=== PATIENT | female | born 1990 | race Two or more races ===

== ENCOUNTER 2019-06-03 11:46 | Inpatient (IN) | payer BC ==
[2019-06-03 13:34] VITALS: BMI 22.8
--- NOTE | 2019-06-03 14:37 | HP ---
<YonathanlisaAaliyah bolanos - Last Filed: 06/03/19 15:03> COWS - Scale Resting Pulse: 0= [place] 80 or Below Sweatin= Chills/Flushing Restless Observation: 1= Difficult to Sit Still Pupil Size: 0= Normal to Room Light Bone or Joint Aches: 1= Mild Discomfort Runny Nose/ Eye Tearin= Nasal Congestion GI Upset > 30mins: 5=Frequent Vomit/Diarrhea Tremor Observation: 2= Slight Tremor Visible Yawning Observation: 0= None Anxiety or Irritability: 2=Irritable/Anxious Goose Flesh Skin: 0=Smooth Skin COWS Score: 13 CIWA Score - Admission Criteria OASAS Guidelines: Admission for Medically Managed Detox: Requires at least one of the followin. CIWA greater than 12 2. Seizures within the past 24 hours 3. Delirium tremens within the past 24 hours 4. Hallucinations within the past 24 hours 5. Acute intervention needed for co occurring medical disorder 6. Acute intervention needed for co occurring psychiatric disorder 7. Severe withdrawal that cannot be handled at a lower level of care (continued vomiting, continued diarrhea, abnormal vital signs) requiring intravenous medication and/or fluids 8. Admission [facility] Chief Complaint: heroin detox, rehab Allergies/Adverse Reactions: Allergies Allergy/AdvReac Type Severity Reaction Status Date / Time No Known Allergies Allergy Verified 06/03/19 13:23 History of Present Illness: Patient is a 29 yo F with a PMHx of anxiety, insomnia, presenting for heroin detox. Patient has been doing heroin for 2 years. Uses 20 bags a day. Both IV and sniff. Last use yesterday in the morning 1 bag. No hx of overdose. Blacked out this morning. Patient stopped a Methadone program in January. Was on 80mg. She was at [facility] for about a year. denies other drug use, alcohol. Takes alprazolam which is prescribed by her doctor. Was at [facility] today because of abdominal pain and vomiting. says she was detoxing. Does not work. Lives with her dad at a house. Traveled to [facility] in January Smokes half pack a day. Does not want nicotine patch. - Ebola screening Have you traveled outside of the country in the last 21 days: No (N) Have you had contact with anyone from an Ebola affected area: No Do you have a fever: No - Review of Systems Constitutional: Chills, Loss of Appetite, Unintentional Wgt. Loss EENT: reports: Nose Congestion Respiratory: reports: Shortness of Breath Cardiac: denies: Chest Pain, Edema Psychiatric: reports: Agitated, Anxious Patient History - Smoking Cessation Smoking history: Current every day smoker Initiated information on smoking cessation: Yes 'Breaking Loose' booklet given: 06/03/19 - Substances abused Heroin Substance route: Injection Frequency: Daily Amount used: 20 BAGS Age of first use: 27 Date of last use: 06/01/19 Admission Physical Exam S - Vital Signs Vital Signs: Vital Signs - 24 hr 06/03/19 13:19 Temperature 97.2 F L Pulse Rate 58 L Respiratory 18 Rate Blood Pressure 104/74 - Physical General Appearance: Yes: No Apparent Distress, Thin HEENTM: Yes: EOMI Respiratory: Yes: No Respiratory Distress, No Accessory Muscle Use Neck: Yes: Supple Cardiology: Yes: Regular Rate, S1, S2 Abdominal: Yes: Non Tender, Flat Extremities: Yes: Other (track osman on b/l UE. 2 small abscesses on LUE near injection sites.) Breathalyzer - Breathalyzer Breathalyzer: 0 Urine Drug Screen - Test Device Lot number: [id number] Expiration date: 03/14/21 - Control Is test valid?: Yes - Results Drug screen NEGATIVE: No Urine drug screen results: FEN-Fentanyl, MOP-Opiates, OXY-Oxycodone, BZO- Benzodiazepines Inpatient Rehab Admission - Rehab Decision to Admit Inpatient rehab admission?: No <Jake Kang - Last Filed: 06/03/19 15:42> CIWA Score - Admission Criteria OASAS Guidelines: Admission for Medically Managed Detox: Requires at least one of the followin. CIWA greater than 12 2. Seizures within the past 24 hours 3. Delirium tremens within the past 24 hours 4. Hallucinations within the past 24 hours 5. Acute intervention needed for co occurring medical disorder 6. Acute intervention needed for co occurring psychiatric disorder 7. Severe withdrawal that cannot be handled at a lower level of care (continued vomiting, continued diarrhea, abnormal vital signs) requiring intravenous medication and/or fluids 8. Admission Physical Exam S - Vital Signs Vital Signs: Vital Signs - 24 hr 06/03/19 13:19 Temperature 97.2 F L Pulse Rate 58 L Respiratory 18 Rate Blood Pressure 104/74 - Diagnostic (1) Opiate dependence Current Visit: Yes Status: Acute (2) Benzodiazepine dependence Current Visit: Yes Status: Acute (3) Abscess Current Visit: Yes Status: Acute Cleared for Admission [facility] - Detox or Rehab [facility] Level of Care: Medically Supervised
[2019-06-03] MEDS ORDERED: BISMUTH SUBSALICYLATE 262 MG/15 ML BTL PO PRN (14:59)
[2019-06-03] MEDS ORDERED: MELATONIN 5 MG TABLETS PO PRN (14:59)
[2019-06-03] MEDS ORDERED: hydrOXYzine PAMOATE 25 MG CAPSULE (FP) PO PRN (14:59)
[2019-06-03] MEDS ORDERED: MAGNESIUM CITRATE 300 ML BOTTLE PO PRN (14:59)
[2019-06-03] MEDS ORDERED: cloNIDine HCL 0.1 MG TABLET PO PRN (14:59)
[2019-06-03] MEDS ORDERED: ACETAMINOPHEN 325 MG TABLET (FP) PO PRN ×2 (14:59)
[2019-06-03] MEDS ORDERED: MAGNESIUM HYDROX 2400MG/30ML ORAL SUSPENSION 30 ML CUP PO PRN (14:59)
[2019-06-03] MEDS ORDERED: MAG HYDROX/AL HYDROX/SIMETH 30 ML UNIT-DOSE CUP PO PRN (14:59)
[2019-06-03] MEDS ORDERED: IBUPROFEN 400 MG TABLET (FP) PO PRN (14:59)
[2019-06-03] MEDS ORDERED: MENTHOL/PHENOL 1 EACH UD MM PRN (14:59)
[2019-06-03] MEDS ORDERED: METHOCARBAMOL 500 MG TABLET PO PRN (14:59)
[2019-06-03] MEDS ORDERED: METHADONE HCL 10 MG TABLET (FOR DETOX USE ONLY) PO ONE (15:35)
[2019-06-03] MEDS: diazePAM 5 MG TABLET PO PRN (15:55)
--- NOTE | 2019-06-03 21:05 | PN ---
Teaching Attending Note Name of Resident: Aaliyah Beth ATTENDING PHYSICIAN STATEMENT I saw and evaluated the patient. I reviewed the resident's note and discussed the case with the resident. I agree with the resident's findings and plan as documented. SUBJECTIVE: severe opiate withdrawal OBJECTIVE: in acute withdrawal ASSESSMENT AND PLAN: admit and detox protocol po abx and monitor abcess/vs Problem List - Problems (1) Opiate dependence Code(s): F11.20 - OPIOID DEPENDENCE, UNCOMPLICATED (2) Benzodiazepine dependence Code(s): F13.20 - SEDATIVE, HYPNOTIC OR ANXIOLYTIC DEPENDENCE, UNCOMPLICATED (3) Abscess Code(s): L02.91 - CUTANEOUS ABSCESS, UNSPECIFIED
[2019-06-03] MEDS: PROCHLORPERAZINE MALEATE 5 MG TABLET PO PRN (21:33)
[2019-06-03] MEDS: diazePAM 5 MG TABLET PO SCH (22:50)
[2019-06-03] MEDS: THIAMINE HCL 100 MG TABLET (FP) PO SCH (22:50)
[2019-06-03] MEDS: SULFAMETHOXAZOLE/TRIMETHOPRIM 800MG/160MG D.S. TABLET PO SCH (22:50)
[2019-06-04] MEDS: diazePAM 5 MG TABLET PO SCH ×3 (06:15→23:07)
[2019-06-04] MEDS ORDERED: METHADONE HCL 5 MG TABLET (FOR DETOX USE ONLY) ONE (09:24)
[2019-06-04] MEDS ORDERED: METHADONE HCL 10 MG TABLET (FOR DETOX USE ONLY) ONE (09:24)
[2019-06-04] MEDS ORDERED: METHADONE (DETOX) 20 MG, METHADONE (DETOX) 5 MG PO ONE (10:00)
[2019-06-04 10:31] LABS: HEMOGLOBIN 12.8 GM/dL (10.7-15.3); MCH 27.6 pg (25.7-33.7); MCHC 32.9 g/dl (32.0-36.0); MEAN CELL VOLUME 83.9 fl (80-96); MEAN PLT VOLUME 8.8 fl (7.5-11.1); PLATELET COUNT 500 K/MM3 (134-434); RBC 4.64 M/mm3 (3.60-5.2); RDW 15.5 % (11.6-15.6); WHITE BLOOD COUNT 8.1 K/mm3 (4.0-10.0)
[2019-06-04] MEDS: PRENATAL VITAMINS W/ FOLIC ACID TABLET (FP) PO SCH (10:43)
[2019-06-04] MEDS: diazePAM 5 MG TABLET PO PRN (10:44)
[2019-06-04 10:45] LABS: BILIRUBIN,TOTAL 0.8 mg/dL (0.2-1); BLOOD UREA NITROGEN 16.2 mg/dL (7-18); CALCIUM 10.5 mg/dL (8.5-10.1); CREATININE 1.1 mg/dL (0.55-1.3); POTASSIUM 3.7 mmol/L (3.5-5.1); TOT PROT 10.2 g/dl (6.4-8.2)
[2019-06-04] MEDS: SULFAMETHOXAZOLE/TRIMETHOPRIM 800MG/160MG D.S. TABLET PO SCH ×2 (10:46→23:07)
[2019-06-04] MEDS: PROCHLORPERAZINE MALEATE 5 MG TABLET PO PRN (12:03)
[2019-06-04] MEDS ORDERED: TRIMETHOBENZAMIDE HCL 200MG/2ML INJ IM ONE (12:30)
[2019-06-04] MEDS ORDERED: ONDANSETRON *ODT* 4 MG TABLET SL PRN (12:31)
--- NOTE | 2019-06-04 13:04 | PN ---
BHS COWS - Scale Resting Pulse: 0= [place] 80 or Below Sweatin=Flushed/Facial Moisture Restless Observation: 1= Difficult to Sit Still Pupil Size: 0= Normal to Room Light Bone or Joint Aches: 1= Mild Discomfort Runny Nose/ Eye Tearin= Runny Nose/Eyes GI Upset > 30mins: 2= Nausea/Diarrhea Tremor Observation of Outstretched Hands: 1= Tremor [place], Not Seen Yawning Observation: 2= >3x During Session Anxiety or Irritability: 2=Irritable/Anxious Goose Flesh Skin: 0=Smooth Skin COWS Score: 13 BHS Progress Note (SOAP) Subjective: nausea/vomiting sweats restless mild shakes anxiety Objective: 06/04/19 13:02 Vital Signs Temperature 96.4 F L 06/04/19 09:11 Pulse Rate 52 L 06/04/19 09:11 Respiratory Rate 18 06/04/19 09:11 Blood Pressure 121/76 06/04/19 09:11 O2 Sat by Pulse Oximetry (%) Laboratory Tests 06/03/19 06/04/19 06/04/19 14:22 07:00 07:00 WBC 8.1 RBC 4.64 Hgb 12.8 Hct 39.0 MCV 83.9 MCH 27.6 MCHC 32.9 RDW 15.5 Plt Count 500 H MPV 8.8 Sodium 134 L Potassium 3.7 Chloride 95 L Carbon Dioxide 31 Anion Gap 8 BUN 16.2 Creatinine 1.1 Est GFR (CKD-EPI)AfAm 79.12 Est GFR (CKD-EPI)NonAf 68.27 Random Glucose 101 Calcium 10.5 H Total Bilirubin 0.8 AST 98 H ALT 92 H Alkaline Phosphatase 242 H Total Protein 10.2 H Albumin 4.0 POC Urine HCG, Qual Negative RPR Titer 06/04/19 07:00 WBC RBC Hgb Hct MCV MCH MCHC RDW Plt Count MPV Sodium Potassium Chloride Carbon Dioxide Anion Gap BUN Creatinine Est GFR (CKD-EPI)AfAm Est GFR (CKD-EPI)NonAf Random Glucose Calcium Total Bilirubin AST ALT Alkaline Phosphatase Total Protein Albumin POC Urine HCG, Qual RPR Titer Nonreactive labs noted will repeat labs aaox3 ambulating no acute distress Assessment: 06/04/19 13:03 withdrawal sx Plan: continue detox increase fluids tigan IM x one zofran SL prn
--- NOTE | 2019-06-04 15:10 | PN ---
S Progress Note Note: pt was seen by nursing and or nursing support worker of pt shaking uncontrollably. pt states if she was having a seizure. rapid response was initiated. during assessment, pt was AAOx3, responding to all questions asked. It did not appear to be a seizure. There were no post-ictal s/s of seizures noted. Pt c/o of nausea and vomiting and anxiety. pt was advised that an:pt has an order for tigan IM for her N/V, pt has an order for valium prn for her anxiety. RN was acknowledge to give pt medication if pt request. pt was made aware to stay in bed resting and if she needs nurse to call using her call kirk. pt in agreement.
--- NOTE | 2019-06-04 16:28 | CONSULT ---
[facility] Psychiatric Consult - Data Date of interview: 06/04/19 Admission source: [facility] Identifying data: Patient is a 29 year old single female, without children, unemployed, domiciled, and is finacially supported by family. This is patient's first admission to detox at [facility]. Patient admitted to for opioid dependence. Substance Abuse History: Smoking Cessation. Smoking history: Current every day smoker. Initiated information on smoking cessation: Yes. 'Breaking Loose' booklet given: 06/03/19. - Substances abused. Heroin. Substance route: Injection. Frequency: Daily. Amount used: 20 BAGS. Age of first use: 27. Date of last use: 06/01/19 Medical History: denies. Psychiatric History: Patient's first psychiatric contact was in her early 20's after she was admitted to a psychiatric unit for mood dyregulation while living in [place]. She reports exhibiting symptoms of europhia, excessive spending and insomnia. Diagnosis of Bipolar disorder. She reports being prescribed seroquel and xanac. After discharge she eventually moved to [place] and saw a private psychiatrist who she continues to see today. Ms. Brown is currently prescribed seroquel 300mg BID + Depakote 250mg ER + Lamictal 100mg BID. She reports noncompliance to depakote (states she only took the medication once) and reports never accepting lamictal despite psychiatrist increasing her dosage. Ms. Brown reports compliance to seroquel 300mg BID. Reports taking it yesterday morning. Patient denies history of suicide attempt. At present patient is experiencing difficulty sleeping. Physical/Sexual Abuse/Trauma History: denies. Mental Status Exam - Mental Status Exam Alert and Oriented to: Time, Place, Person Cognitive Function: Good Patient Appearance: Well Groomed Mood: Withdrawn Affect: Mood Congruent Patient Behavior: Fatigued, Cooperative Speech Pattern: Appropriate Voice Loudness: Moderately Soft/Quiet Thought Process: Goal Oriented Thought Disorder: Not Present Hallucinations: Denies Suicidal Ideation: Denies Homicidal Ideation: Denies Insight/Judgement: Poor Sleep: Poorly Appetite: Fair Muscle strength/Tone: Normal Gait/Station: Normal Psychiatric Findings - Problem List ([place] 1, 2,3) (1) Bipolar disorder Current Visit: Yes Status: Chronic (2) Benzodiazepine dependence Current Visit: Yes Status: Acute (3) Opiate dependence Current Visit: Yes Status: Acute (4) Substance-induced sleep disorder Current Visit: Yes Status: Acute (5) Substance induced mood disorder Current Visit: Yes Status: Acute - Initial Treatment Plan Initial Treatment Plan: Psychoeducation provided. Detoxification in progress. Will hold seroquel at this time due to prolong QT. QT/QTC 540/521. Resident Kirit made aware of prolong QT.
[2019-06-04] MEDS: TRIMETHOBENZAMIDE HCL 200MG/2ML INJ IM PRN (18:02)
--- NOTE | 2019-06-04 19:07 | PN ---
[facility] Progress Note Note: Was asked to evaluate patient for nausea/vomiting. Patient not being able to tolerate PO. Has been vomiting constantly since yesterday. Patient says Methadone/Valium being brought up with the vomit. Also complains of cramping abdominal pain, and leg cramps. Given Tigan, compazine, zofran with no improvement. Vital Signs Period Temp Pulse Resp BP Sys/Hunt Pulse Ox Last 24 Hr 96.4 F-98.4 F 45-56 16-18 103-127/57-78 Plan: Patient clinically looks dehydrated. Pale appearing on PE. Actively vomiting in front of me. Lab from the AM reveals mild hyponatremia w/ low chloride. Send to ER for IV hydration. Discussed case with ER resident: Dr. Lorenzana. Patient can receive 1x Methadone dose 25mg in the ER IM since patient not tolerating PO. Patient may also receive dose of Ativan or appropriate benzo ( takes benzo as an outpatient).
[2019-06-04] MEDS: THIAMINE HCL 100 MG TABLET (FP) PO SCH (23:07)
--- NOTE | 2019-06-05 02:40 | PN ---
[facility] Progress Note Note: Patient came back from ER and was examined in bed. She reports that she feels a lot better and has not vomited in the past 3 hours. Vital signs stable Vital Signs Temperature 98.2 F 06/05/19 02:41 Pulse Rate 59 L 06/05/19 02:41 Respiratory Rate 16 06/05/19 02:41 Blood Pressure 107/66 06/05/19 02:41 O2 Sat by Pulse Oximetry (%) Action: Continue to monitor patient
[2019-06-05] MEDS: diazePAM 5 MG TABLET PO PRN (02:45)
[2019-06-05] MEDS: diazePAM 5 MG TABLET PO SCH ×2 (05:58→18:49)
[2019-06-05] MEDS ORDERED: METHADONE HCL 10 MG TABLET (FOR DETOX USE ONLY) PO ONE (10:00)
[2019-06-05] MEDS: PRENATAL VITAMINS W/ FOLIC ACID TABLET (FP) PO SCH (10:59)
[2019-06-05] MEDS: SULFAMETHOXAZOLE/TRIMETHOPRIM 800MG/160MG D.S. TABLET PO SCH ×2 (11:00→23:46)
[2019-06-05] MEDS: METOCLOPRAMIDE HCL 10 MG TABLET (FP) PO SCH ×2 (11:24→17:52)
--- NOTE | 2019-06-05 11:41 | EKG ---
Test Reason : Blood Pressure : / mmHG Vent. Rate : 056 BPM Atrial Rate : 056 BPM P-R Int : 130 ms QRS Dur : 084 ms QT Int : 540 ms P-R-T Axes : 033 055 045 degrees QTc Int : 521 ms SINUS BRADYCARDIA WITH PREMATURE ATRIAL COMPLEXES NONSPECIFIC T WAVE ABNORMALITY PROLONGED QT ABNORMAL ECG NO PREVIOUS ECGS AVAILABLE Confirmed by SRUTHI CAPONE MD ([id number]) on 06/05/2019 11:41:13 AM Referred By: RAJAT ALEXANDER Confirmed By:SRUTHI CAPONE MD
[2019-06-05] MEDS ORDERED: TRIMETHOBENZAMIDE HCL 200MG/2ML INJ IM PRN (11:42)
--- NOTE | 2019-06-05 11:47 | PN ---
BHS COWS - Scale Resting Pulse: 0= [place] 80 or Below Sweatin= Chills/Flushing Restless Observation: 1= Difficult to Sit Still Pupil Size: 0= Normal to Room Light Bone or Joint Aches: 2= Severe Diffuse Aches Runny Nose/ Eye Tearin= Nasal Congestion GI Upset > 30mins: 0= None Tremor Observation of Outstretched Hands: 1= Tremor [place], Not Seen Yawning Observation: 1= 1-2x During Session Anxiety or Irritability: 2=Irritable/Anxious Goose Flesh Skin: 0=Smooth Skin COWS Score: 9 BHS Progress Note (SOAP) Subjective: sweats mild shakes feeling better Objective: 06/05/19 11:44 Vital Signs Temperature 97.9 F 06/05/19 09:48 Pulse Rate 60 06/05/19 09:48 Respiratory Rate 18 06/05/19 09:48 Blood Pressure 106/80 06/05/19 09:48 O2 Sat by Pulse Oximetry (%) Laboratory Tests 06/03/19 06/04/19 06/04/19 14:22 07:00 07:00 WBC 8.1 RBC 4.64 Hgb 12.8 Hct 39.0 MCV 83.9 MCH 27.6 MCHC 32.9 RDW 15.5 Plt Count 500 H MPV 8.8 Sodium 134 L Potassium 3.7 Chloride 95 L Carbon Dioxide 31 Anion Gap 8 BUN 16.2 Creatinine 1.1 Est GFR (CKD-EPI)AfAm 79.12 Est GFR (CKD-EPI)NonAf 68.27 Random Glucose 101 Calcium 10.5 H Total Bilirubin 0.8 AST 98 H ALT 92 H Alkaline Phosphatase 242 H Total Protein 10.2 H Albumin 4.0 POC Urine HCG, Qual Negative RPR Titer 06/04/19 07:00 WBC RBC Hgb Hct MCV MCH MCHC RDW Plt Count MPV Sodium Potassium Chloride Carbon Dioxide Anion Gap BUN Creatinine Est GFR (CKD-EPI)AfAm Est GFR (CKD-EPI)NonAf Random Glucose Calcium Total Bilirubin AST ALT Alkaline Phosphatase Total Protein Albumin POC Urine HCG, Qual RPR Titer Nonreactive aaox3 ambulating no acute distress Assessment: 06/05/19 11:46 withdrawal sx Plan: continue detox increase fluids reglan 10mg po
[2019-06-05 12:37] LABS: ALBUMIN 3.6 g/dl (3.4-5.0); BILIRUBIN,TOTAL 0.5 mg/dL (0.2-1); BLOOD UREA NITROGEN 16.5 mg/dL (7-18); CALCIUM 9.8 mg/dL (8.5-10.1); CREATININE 0.9 mg/dL (0.55-1.3); POTASSIUM 3.4 mmol/L (3.5-5.1); TOT PROT 9.3 g/dl (6.4-8.2)
[2019-06-05 13:19] LABS: BASO % 0.3 % (0-2.0); EOS % 0.6 % (0-4.5); HEMATOCRIT 36.4 % (32.4-45.2); HEMOGLOBIN 12.2 GM/dL (10.7-15.3); LYMPH % 75.1 % (8-40); MCHC 33.6 g/dl (32.0-36.0); MEAN CELL VOLUME 83.2 fl (80-96); MEAN PLT VOLUME 8.6 fl (7.5-11.1); PLATELET COUNT 420 K/MM3 (134-434); RBC 4.37 M/mm3 (3.60-5.2); RDW 15.3 % (11.6-15.6)
[2019-06-05] MEDS: TRIMETHOBENZAMIDE HCL 200MG/2ML INJ IM PRN (15:35)
[2019-06-05 15:58] LABS: ANISOCYTOSIS 0; MACROCYTOSIS 0; PLATELET ESTIMATE NORMAL
[2019-06-05] MEDS: THIAMINE HCL 100 MG TABLET (FP) PO SCH (23:46)
[2019-06-06] MEDS: TRIMETHOBENZAMIDE HCL 200MG/2ML INJ IM PRN ×3 (02:46→23:13)
[2019-06-06] MEDS ORDERED: diazePAM 5 MG TABLET PO ONE (06:00)
[2019-06-06] MEDS ORDERED: METHADONE HCL 5 MG TABLET (FOR DETOX USE ONLY) ONE (09:33)
[2019-06-06] MEDS ORDERED: METHADONE HCL 10 MG TABLET (FOR DETOX USE ONLY) ONE (09:33)
[2019-06-06] MEDS ORDERED: METHADONE (DETOX) 10 MG, METHADONE (DETOX) 5 MG PO ONE (10:00)
[2019-06-06] MEDS: PRENATAL VITAMINS W/ FOLIC ACID TABLET (FP) PO SCH (13:21)
[2019-06-06] MEDS: SULFAMETHOXAZOLE/TRIMETHOPRIM 800MG/160MG D.S. TABLET PO SCH ×2 (13:21→22:26)
--- NOTE | 2019-06-06 13:40 | PN ---
BHS COWS - Scale Resting Pulse: 0= [place] 80 or Below Sweatin= Chills/Flushing Restless Observation: 0= Sits Still Pupil Size: 0= Normal to Room Light Bone or Joint Aches: 1= Mild Discomfort Runny Nose/ Eye Tearin= None GI Upset > 30mins: 0= None Tremor Observation of Outstretched Hands: 1= Tremor [place], Not Seen Yawning Observation: 2= >3x During Session Anxiety or Irritability: 1=Feels Anxious/Irritable Goose Flesh Skin: 0=Smooth Skin COWS Score: 6 BHS Progress Note (SOAP) Subjective: sleepy sweats tired Objective: 06/06/19 13:39 Vital Signs Temperature 97.7 F 06/06/19 13:17 Pulse Rate 63 06/06/19 13:17 Respiratory Rate 18 06/06/19 13:17 Blood Pressure 124/76 06/06/19 13:17 O2 Sat by Pulse Oximetry (%) Laboratory Tests 06/03/19 06/04/19 06/04/19 14:22 07:00 07:00 WBC 8.1 RBC 4.64 Hgb 12.8 Hct 39.0 MCV 83.9 MCH 27.6 MCHC 32.9 RDW 15.5 Plt Count 500 H MPV 8.8 Absolute Neuts (auto) Neutrophils % Neutrophils % (Manual) Band Neutrophils % Lymphocytes % Lymphocytes % (Manual) Monocytes % Monocytes % (Manual) Eosinophils % Eosinophils % (Manual) Basophils % Basophils % (Manual) Myelocytes % (Man) Promyelocytes % (Man) Blast Cells % (Manual) Nucleated RBC % Metamyelocytes Hypochromia Platelet Estimate Polychromasia Poikilocytosis Anisocytosis Microcytosis Macrocytosis Sodium 134 L Potassium 3.7 Chloride 95 L Carbon Dioxide 31 Anion Gap 8 BUN 16.2 Creatinine 1.1 Est GFR (CKD-EPI)AfAm 79.12 Est GFR (CKD-EPI)NonAf 68.27 Random Glucose 101 Calcium 10.5 H Total Bilirubin 0.8 AST 98 H ALT 92 H Alkaline Phosphatase 242 H Total Protein 10.2 H Albumin 4.0 POC Urine HCG, Qual Negative RPR Titer 06/04/19 06/05/19 06/05/19 07:00 08:25 08:25 WBC 8.0 RBC 4.37 Hgb 12.2 Hct 36.4 MCV 83.2 MCH 28.0 MCHC 33.6 RDW 15.3 Plt Count 420 MPV 8.6 Absolute Neuts (auto) 1.0 L Neutrophils % 13.0 L D Neutrophils % (Manual) 10.9 L Band Neutrophils % 0.0 Lymphocytes % 75.1 H Lymphocytes % (Manual) 73.3 H D Monocytes % 11.0 H Monocytes % (Manual) 9 Eosinophils % 0.6 D Eosinophils % (Manual) 1.0 Basophils % 0.3 Basophils % (Manual) 1.0 Myelocytes % (Man) 0 Promyelocytes % (Man) 0 Blast Cells % (Manual) 0 Nucleated RBC % 0 Metamyelocytes 0 Hypochromia 0 Platelet Estimate Normal Polychromasia 0 Poikilocytosis 0 Anisocytosis 0 Microcytosis 0 Macrocytosis 0 Sodium 135 L Potassium 3.4 L Chloride 94 L Carbon Dioxide 30 Anion Gap 12 BUN 16.5 Creatinine 0.9 Est GFR (CKD-EPI)AfAm 100.85 Est GFR (CKD-EPI)NonAf 87.01 Random Glucose 99 Calcium 9.8 Total Bilirubin 0.5 AST 102 H ALT 89 H Alkaline Phosphatase 212 H Total Protein 9.3 H Albumin 3.6 POC Urine HCG, Qual RPR Titer Nonreactive mild low potassium 3.4 aaox3 lying in bed no acute distress liver enzymes improving Assessment: 06/06/19 13:41 withdrawal sx Plan: continue detox increase fluids [id number] [id number] x one
[2019-06-06] MEDS ORDERED: ONDANSETRON *ODT* 4 MG TABLET SL PRN (13:49)
[2019-06-06] MEDS ORDERED: METHADONE HCL 5 MG TABLET (FOR DETOX USE ONLY) PO ONE (13:54)
[2019-06-06] MEDS ORDERED: POTASSIUM CHLORIDE TABS 20 MEQ TABLET.ER (FP) PO ONE (14:15)
[2019-06-06] MEDS ORDERED: PROCHLORPERAZINE MALEATE 5 MG TABLET PO PRN (14:24)
[2019-06-06] MEDS: THIAMINE HCL 100 MG TABLET (FP) PO SCH (22:25)
[2019-06-07] MEDS ORDERED: ONDANSETRON *ODT* 4 MG TABLET SL ONE (03:50)
[2019-06-07 08:05] VITALS: TEMP 98.1
[2019-06-07] MEDS ORDERED: METHADONE HCL 10 MG TABLET (FOR DETOX USE ONLY) PO ONE (10:00)
[2019-06-07 10:02] VITALS: BP 121/68; PULSE 116
--- NOTE | 2019-06-07 11:19 | PN ---
[facility] Progress Note Note: S: c/o mid abd pain/N/V x3 today. Denies any blood in vomitus at this time. Denies any chest pain, dizziness, or SOB. O: Vital Signs 06/07/19 06/07/19 06/07/19 03:30 06:00 10:01 Temperature 98.1 F 98.1 F Pulse Rate 64 116 H Respiratory 18 16 18 Rate Blood Pressure 123/76 121/68 Lab Results WBC 8.0 K/mm3 (4.0-10.0) 06/05/19 08:25 RBC 4.37 M/mm3 (3.60-5.2) 06/05/19 08:25 Hgb 12.2 GM/dL (10.7-15.3) 06/05/19 08:25 Hct 36.4 % (32.4-45.2) 06/05/19 08:25 MCV 83.2 fl (80-96) 06/05/19 08:25 MCHC 33.6 g/dl (32.0-36.0) 06/05/19 08:25 RDW 15.3 % (11.6-15.6) 06/05/19 08:25 Plt Count 420 K/MM3 (134-434) 06/05/19 08:25 Sodium 135 mmol/L (136-145) L 06/05/19 08:25 Potassium 3.4 mmol/L (3.5-5.1) L 06/05/19 08:25 Chloride 94 mmol/L (98-107) L 06/05/19 08:25 Carbon Dioxide 30 mmol/L (21-32) 06/05/19 08:25 Anion Gap 12 MMOL/L (8-16) 06/05/19 08:25 BUN 16.5 mg/dL (7-18) 06/05/19 08:25 Creatinine 0.9 mg/dL (0.55-1.3) 06/05/19 08:25 Random Glucose 99 mg/dL (74-106) 06/05/19 08:25 Calcium 9.8 mg/dL (8.5-10.1) 06/05/19 08:25 Labs noted. A: AOX3, in no acute respiratory distress. Full ROM, Mild Withdrawal symptoms. Mid abdomen tenderness Abdominal pain with nausea and vomiting. Tachycardia. BHS COWS - Scale Resting Pulse: 2= [place] 101-120 Sweatin= Chills/Flushing Restless Observation: 1= Difficult to Sit Still Pupil Size: 0= Normal to Room Light Bone or Joint Aches: 0= None Runny Nose/ Eye Tearin= None GI Upset > 30mins: 1= Stomach Cramp Tremor Observation of Outstretched Hands: 0= None Yawning Observation: 1= 1-2x During Session Anxiety or Irritability: 0= None Goose Flesh Skin: 0=Smooth Skin COWS Score: 6 P: Verbal report given to Dr. Green for transfer to ED for evaluation.
--- NOTE | 2019-06-07 11:21 | PN ---
BHS COWS - Scale Resting Pulse: 2= [place] 101-120 Sweatin= Chills/Flushing Restless Observation: 1= Difficult to Sit Still Pupil Size: 0= Normal to Room Light Bone or Joint Aches: 0= None Runny Nose/ Eye Tearin= None GI Upset > 30mins: 1= Stomach Cramp Tremor Observation of Outstretched Hands: 0= None Yawning Observation: 1= 1-2x During Session Anxiety or Irritability: 0= None Goose Flesh Skin: 0=Smooth Skin COWS Score: 6
[2019-06-07] MEDS: PRENATAL VITAMINS W/ FOLIC ACID TABLET (FP) PO SCH (13:34)
[2019-06-07] MEDS: SULFAMETHOXAZOLE/TRIMETHOPRIM 800MG/160MG D.S. TABLET PO SCH (13:34)
--- NOTE | 2019-06-07 22:01 | HP ---
CHIEF COMPLAINT: Epigastric pain associated with nausea and NBNB vomiting. PCP: Dr. Galindo HISTORY OF PRESENT ILLNESS: The patient is a 29 year old female with past medical history significant for heroin abuse and anxiety. She presented to the ER from [facility] (where she is currently admitted for detox for heroin use) with complaints of epigastric pain associated with nausea and multiple episodes of NBNB vomiting for the past 7 days. The pain is constant, and she feels nauseated and vomits every time she eats. She was previously seen at [facility] 9 days ago, where an abdominal USG was performed and she was managed conservatively. She then checked into [facility] for heroin detoxification. She presented to the [facility] ER from [facility] 3 days ago for similar symptoms, and was treated with IM Reglan and methadone before being D/[facility]. She now presents with increased vomiting and nausea. She was recently told she had a positive urine culture from [place], but has had no complaints of dysuria. The epigastric pain is 9/10, constant, exacerbated by eating, and described as a sharp pain. There are no associated fevers, chills, shortness of breath, chest pain, or dysuria. ER course was notable for: (1) USG showed 1.7cm gallstone in fundus of GB (2) Zofran for nausea (3) Surgery consult () (4) Methadone taper restarted Recent Travel: [place] in January [place] in January PAST MEDICAL HISTORY: Anxiety, takes Seroquil and Alprazolam PAST SURGICAL HISTORY: Breast augmentation in 2011 Social History: Smoking: none Alcohol: none Drugs: Heroin, 20 bags per day for the past 1.5 years Family History: Paternal grandfather: DM, HTN, Stroke Paternal grandmother: [place], of leukemia (age 82) Allergies No Known Allergies Allergy (Verified 06/04/19 20:14) HOME MEDICATIONS: Home Medications Medication Instructions Recorded Alprazolam [Xanax] 2 mg PO DAILY 06/03/19 Buprenorphine HCl/Naloxone HCl 1 each SL DAILY 06/03/19 [Buprenorp-Nalox 8-2 mg Sl Film] Ondansetron [Zofran -] 4 mg PO TID PRN 06/03/19 Quetiapine Fumarate [Seroquel] 300 mg PO DAILY 06/03/19 REVIEW OF SYSTEMS CONSTITUTIONAL: Absent: fever, chills, diaphoresis, generalized weakness, malaise, loss of appetite, weight change HEENT: Absent: rhinorrhea, nasal congestion, throat pain, throat swelling, difficulty swallowing, mouth swelling, ear pain, eye pain, visual changes CARDIOVASCULAR: Absent: chest pain, syncope, palpitations, irregular heart rate, lightheadedness , peripheral edema RESPIRATORY: Absent: cough, shortness of breath, dyspnea with exertion, orthopnea, wheezing, stridor, hemoptysis GASTROINTESTINAL: Absent: abdominal pain, abdominal distension, nausea, vomiting, diarrhea, constipation, melena, hematochezia GENITOURINARY: Absent: dysuria, frequency, urgency, hesitancy, hematuria, flank pain, genital pain MUSCULOSKELETAL: Absent: myalgia, arthralgia, joint swelling, back pain, neck pain SKIN: Absent: rash, itching, pallor HEMATOLOGIC/IMMUNOLOGIC: Absent: easy bleeding, easy bruising, lymphadenopathy, frequent infections ENDOCRINE: Absent: unexplained weight gain, unexplained weight loss, heat intolerance, cold intolerance NEUROLOGIC: Absent: headache, focal weakness or paresthesias, dizziness, unsteady gait, seizure, mental status changes, bladder or bowel incontinence PSYCHIATRIC: Absent: anxiety, depression, suicidal or homicidal ideation, hallucinations. PHYSICAL EXAMINATION Vital Signs - 24 hr 06/06/19 06/07/19 06/07/19 21:57 03:30 06:00 Temperature 98.4 F 98.1 F Pulse Rate 62 64 Respiratory 16 18 16 Rate Blood Pressure 116/64 123/76 06/07/19 10:01 Temperature 98.1 F Pulse Rate 116 H Respiratory 18 Rate Blood Pressure 121/68 GENERAL: Awake, alert, and fully oriented, in no acute distress. HEAD: Normal with no signs of trauma. EYES: Pupils equal, round and reactive to light, extraocular movements intact, sclera anicteric, conjunctiva clear. No lid lag. EARS, NOSE, THROAT: Ears normal, nares patent, oropharynx clear without exudates. Moist mucous membranes. NECK: Normal range of motion, supple without lymphadenopathy, JVD, or masses. LUNGS: Breath sounds equal, clear to auscultation bilaterally. No wheezes, and no crackles. No accessory muscle use. HEART: Regular rate and rhythm, normal S1 and S2 without murmur, rub or gallop. ABDOMEN: Soft, nontender, not distended, normoactive bowel sounds, no guarding, no rebound, no masses. No hepatomegaly or splenomegaly. MUSCULOSKELETAL: Normal range of motion at all joints. No bony deformities or tenderness. No CVA tenderness. UPPER EXTREMITIES: 2+ pulses, warm, well-perfused. No cyanosis. No clubbing. No peripheral edema. LOWER EXTREMITIES: 2+ pulses, warm, well-perfused. No calf tenderness. No peripheral edema. NEUROLOGICAL: Cranial nerves II-XII intact. Normal speech. Normal gait. PSYCHIATRIC: Cooperative. Good eye contact. Appropriate mood and affect. SKIN: Warm, dry, normal turgor, no rashes or lesions noted, normal capillary refill. ASSESSMENT/PLAN: #Cholelithiasis - USG showed 1.7cm gallstone in fundus of GB - Dr. Pace consulted - Zofran for nausea - AMA ordered, r/o PBC - Ucx ordered - UA: 3+ ketones #Hx of Heroin Abuse - Methadone taper continued #FEN - NPO - N/S @ 100 Visit type - Emergency Visit Emergency Visit: Yes ED Registration Date: 06/03/19 Care time: The patient presented to the Emergency Department on the above date and was hospitalized for further evaluation of their emergent condition. - New Patient This patient is new to me today: Yes Date on this admission: 06/08/19 - Critical Care Critical Care patient: No ATTENDING PHYSICIAN STATEMENT I saw and evaluated the patient. I reviewed the resident's note and discussed the case with the resident. I agree with the resident's findings and plan as documented. SUBJECTIVE: OBJECTIVE: ASSESSMENT AND PLAN:
[2019-06-08] MEDS ORDERED: METHADONE HCL 5 MG TABLET (FOR DETOX USE ONLY) PO ONE (06:00)
== END 2019-06-08 07:40 | disposition short-term general hospital (02) | DRG 773 ==
LOC: EDSEX → YASAS 11:46 → Y6N 15:13
PROVIDERS: ADMIT Surgery; ATTEND Surgery
PROC: HZ2ZZZZ Detoxification Services for Substance Abuse Treatment (ICD-10-PCS; principal; 2019-06-03)
DX: F11.23 Opioid dependence with withdrawal (principal); F13.230 Sedative, hypnotic or anxiolytic dependence with withdrawal, uncomplicated; F31.9 Bipolar disorder, unspecified; F19.24 Other psychoactive substance dependence with psychoactive substance-induced mood disorder; F19.282 Other psychoactive substance dependence with psychoactive substance-induced sleep disorder; F41.9 Anxiety disorder, unspecified; E87.1 Hypo-osmolality and hyponatremia; E87.6 Hypokalemia
CPT/HCPCS: 36415; 80053; 81025; 85025; 85027; 86480; 86593; 93005; 93010; Q0162

== ENCOUNTER 2019-06-04 19:59 | Emergency (ER) | payer BC ==
[2019-06-04 20:14] VITALS: TEMP 98.3; BMI 20.3
--- NOTE | 2019-06-04 20:23 | PDOC ---
History of Present Illness - General Chief Complaint: Nausea/Vomiting Stated Complaint: NAUSEA AND VOMITING Time Seen by Provider: 06/04/19 20:18 History Source: Patient Exam Limitations: No Limitations - History of Present Illness Initial Comments: Pt is a 29 yo F, with PMH of bipolar disorder and polysubstance abuse (heroin IVDU and xanax), who is presenting from [facility] for persistent nausea and vomiting. Pt states her last heroin use was 4 days ago, and has been persistently vomiting since that time. Pt states she went to both [place] and [facility] 2 days ago, and was diagnosed with a UTI but was unable to take any of the antibiotics due to the vomiting. Pt endorses urinary frequency and urgency. Pt was unable to take her methadone today due to vomiting. Pt denies any fevers/chills, headache, vision changes, syncope, chest pain, palpitations, SOB, abdominal pain, hematuria or flank pain, diarrhea/constipation, or leg swelling. Allergies: NKDA PCP: None Social: Pt denies any cigarette or alcohol use. See drug use above. Pt denies any recent travel or sick contacts. Surgical: no relevant history. Family: no relevant history. 06/05/19 03:34 06/05/19 03:55 Past History - Travel Traveled outside of the country in the last 30 days: No Close contact w/someone who was outside of country & ill: No - Past Medical History Allergies/Adverse Reactions: Allergies Allergy/AdvReac Type Severity Reaction Status Date / Time No Known Allergies Allergy Verified 06/04/19 20:14 Home Medications: Ambulatory Orders Alprazolam [Xanax] 2 mg PO DAILY 06/03/19 Buprenorphine HCl/Naloxone HCl [Buprenorp-Nalox 8-2 mg Sl Film] 1 each SL DAILY 06/03/19 Ondansetron [Zofran -] 4 mg PO TID PRN 06/03/19 Quetiapine Fumarate [Seroquel] 300 mg PO DAILY 06/03/19 Asthma: No Cardiac Disorders: No COPD: No Diabetes: No GI Disorders: No Disorders: No HTN: No Kidney Stones: No Seizures: No - Surgical History Abdominal Surgery: No Appendectomy: No Cardiac Surgery: No Cholecystectomy: No Lung Surgery: No Neurologic Surgery: No Orthopedic Surgery: No - Suicide/Smoking/Psychosocial Hx Smoking History: Unknown if ever smoked Have you smoked in the past 12 months: No Number of Cigarettes Smoked Daily: 10 'Breaking Loose' booklet given: 06/03/19 Hx Alcohol Use: No Drug/Substance Use Hx: Yes (HEROINE) Hx Substance Use Treatment: Yes (last year) Review of Systems - Review of Systems Able to Perform ROS?: Yes Is the patient limited Latvian proficient: No Constitutional: Yes: Weight Stable. No: Chills, Diaphoresis, Fever, Loss of Appetite, Malaise, Weakness HEENTM: No: Blurred Vision, Double Vision, Nose Congestion, Throat Pain, Throat Swelling, Difficulty Swallowing Respiratory: No: Cough, Orthopnea, Shortness of Breath Cardiac (ROS): No: Chest Pain, Edema, Irregular Heart Rate, Lightheadedness, Palpitations, Syncope, Chest Tightness ABD/GI: Yes: Nausea, Poor Appetite, Poor Fluid Intake, Vomiting. No: Constipated, Diarrhea, Abdominal cramping : Yes: Frequency, Urgency. No: Burning, Dysuria, Flank Pain, Hematuria, Pain Musculoskeletal: No: Back Pain, Muscle Pain, Muscle Weakness Integumentary: No: Rash Neurological: No: Headache, Numbness, Weakness, Unsteady Gait, Dizziness Psychiatric: No: Sleep Pattern Change, Change in Appetite Endocrine: No: Increased Urine, Change in Weight Hematologic/Lymphatic: No: Anemia, Blood Clots, Easy Bleeding, Easy Bruising All Other Systems: Reviewed and Negative *Physical Exam - Vital Signs Last Vital Signs Temp Pulse Resp BP Pulse Ox 98.3 F 53 L 18 100/60 96 06/04/19 20:08 06/04/19 20:08 06/04/19 20:08 06/04/19 20:08 06/04/19 20:08 - Physical Exam Comments: Vitals stable, pt afebrile. Pt vomiting clear fluid on exam, thin body habitus. Pt alert and oriented x3. matrix bath operator generally intact, muscular strength and sensation intact. No midline spinal tenderness, step-offs, or crepitus. Head normocephalic, atraumatic. Eyes PERRLA, EOMI. Oropharynx without erythema or exudates, no LAD b/l. No nasal congestion, hearing intact. Clear heart sounds, S1/S2, no JVD, b/l pedal edema, or heart murmur. Clear lung sounds, no respiratory distress, wheezes, crackles, or accessory muscle use. Epigastric abdominal TTP. No CVA tenderness to palpation, no rebound, no guarding. Abdomen soft, non-distended, and with normoactive bowel sounds. Active track osman/ecchymoses on b/l forearms, no overlying erythema or drainage. Skin otherwise without jaundice or rash. 06/05/19 03:59 ED Treatment Course - LABORATORY CBC & Chemistry Diagram: 06/04/19 21:21 06/04/19 21:21 Medical Decision Making - Medical Decision Making Pt was seen at bedside, also will be seen by attending Dr. Akers. Pt presenting with persistent nausea/vomiting and urinary symptoms. Will evaluate for electrolyte imbalances and provide IM medications. Pt very difficult IV stick, will provide IM medications and PO hydration for now. Provided 25 mg IM methadone and 10 mg IM reglan for improvement of vomiting and withdrawal symptoms. Will continue to reassess pt and monitor for symptomatic improvement. ECG: Sinus bradycardia (HR 56, NC 124, QRS 92, QTc 455).TWIs in V3-V5, II-III. No prior ECG for comparison. 06/05/19 04:02 After IM medications, pt was able to tolerate PO water and ice chips. CBC and CMP WNL, lipase 75. UA +bacteria and +WBC -- provided 1g IM rocephin Pt discharged back to [facility] via ambulance. Vitals stable. Pt states feeling much improved since IM meds. 06/05/19 04:05 *DC/Admit/Observation/Transfer Diagnosis at time of Disposition: Heroin abuse Nausea and vomiting Qualifiers: Vomiting type: unspecified Vomiting Intractability: non-intractable Qualified Code(s): R11.2 - Nausea with vomiting, unspecified - Discharge Dispostion Disposition: HOME Condition at time of disposition: Improved Decision to Admit order: No - Referrals Referrals: Guru Galindo [Primary Care Provider] - - Patient Instructions Printed Discharge Instructions: Chemical Dependency (Narcotic) (Alternative Therapy), DI for Vomiting -- Adult Additional Instructions: You were seen in the ER today for nausea and vomiting. The results of your labs today showed that your electrolytes were normal. Please return to detox immediately to discuss your visit and make sure your symptoms have improved. Please return to the ER if you have any worsening pain, development of fevers or chills, loss of consciousness, inability to tolerate food or fluids, or any other concerns. - Post Discharge Activity
[2019-06-04] MEDS ORDERED: ONDANSETRON 4 MG/2 ML VIAL IVPUSH ONE (20:29)
[2019-06-04] MEDS ORDERED: SODIUM CHLORIDE 1,000 ML IV STA (20:29)
[2019-06-04] MEDS ORDERED: FAMOTIDINE 20 MG/50 ML IVPB 20 MG/50 ML MG IVPB ONE (20:41)
[2019-06-04] MEDS ORDERED: METHADONE HCL 10 MG/1 ML (20ML VIAL) IM ONE (20:45)
[2019-06-04] MEDS ORDERED: METOCLOPRAMIDE HCL INJECTION 10 MG/2 ML VIAL IM ONE (21:13)
--- NOTE | 2019-06-04 21:17 | PDOC ---
Documentation entered by Cleve Burr SCRIBE, acting as scribe for Octavio Gannon MD. Octavio Gannon MD: This documentation has been prepared by the Leno palencia Elijah, SCRIBE, under my direction and personally reviewed by me in its entirety. I confirm that the documentation accurately reflects all work, treatment, procedures, and medical decision making performed by me. Attending Attestation - Resident Resident Name: ArmandoMinnie - ED Attending Attestation I have performed the following: I have examined & evaluated the patient, The case was reviewed & discussed with the resident, I agree w/resident's findings & plan - HPI HPI: 06/04/19 20:53 Patient is a 29 year old female with a significant past medical history of IV Drug use who presents to the ED with persistent vomiting. Patient has been unable to tolerate medication orally prompting the visit to the ED. Allergies: NKA PCP: Dr. Galindo - Physicial Exam PE: 06/04/19 21:14 Patient is awake and alert, well-nourished, actively vomiting Normocephalic and atraumatic PERRLA, EOMI, no scleral icterus mmm No meningismus CTA RRR Abdomen soft, nondistended, minimal epigastric discomfort, no hernias, no guarding or rebound - Medical Decision Making 06/04/19 21:15 Patient is a 29-year-old female with history of drug use presents from [facility] inpatient detox for persistent nausea and nonbloody, nonbilious vomiting. Patient's been unable to take any of her by mouth medications at [facility]. In the ER, patient is noted to be afebrile and nontoxic appearing. Serial abdominal exams reveal epigastric discomfort only. There are multiple venipuncture and track osman to upper and lower extremities bilaterally. Multiple attempts at obtaining venous access failed at this time. Will obtain CBC/CMP using a stick. We'll administer IM Reglan and methadone. Will reassess. 06/05/19 00:15 Patient reassessed. Patient is resting comfortably. CBC/CMP within normal limit without significant with pneumatosis or evidence of electrolyte abnormalities. Lipase within normal limit. Patient tolerating by mouth at this time. Will discharge to [facility] for continuous care
[2019-06-04 21:40] LABS: BASO % 0.2 % (0-2.0); EOS % 0.1 % (0-4.5); HEMOGLOBIN 11.9 GM/dL (10.7-15.3); MCH 28.1 pg (25.7-33.7); MCHC 34.1 g/dl (32.0-36.0); MEAN CELL VOLUME 82.4 fl (80-96); MEAN PLT VOLUME 7.9 fl (7.5-11.1); MONO % 10.6 % (3.8-10.2); NEUT % 26.1 % (42.8-82.8); PLATELET COUNT 467 K/MM3 (134-434); RBC 4.24 M/mm3 (3.60-5.2); RDW 15.4 % (11.6-15.6); WHITE BLOOD COUNT 8.4 K/mm3 (4.0-10.0)
[2019-06-04 21:54] LABS: BILIRUBIN,TOTAL 0.6 mg/dL (0.2-1); BLOOD UREA NITROGEN 17.5 mg/dL (7-18); CREATININE 0.8 mg/dL (0.55-1.3); MAGNESIUM 2.9 mg/dL (1.8-2.4); POTASSIUM 3.6 mmol/L (3.5-5.1); TOT PROT 9.7 g/dl (6.4-8.2)
[2019-06-04 21:54] LABS: EPI CELLS 21.8 /HPF (0-5/HPF); HYALINE CASTS 64 /lpf (0-8); URINE APPEARANCE TURBID; URINE BILIRUBIN NEGATIVE (NEGATIVE); URINE COLOR DK YELLOW; URINE GLUCOSE (UA) NEGATIVE (NEGATIVE); URINE KETONE 2+ (NEGATIVE); URINE LEUK ESTERASE NEGATIVE (NEGATIVE); URINE NITRITE NEGATIVE (NEGATIVE); URINE PROTEIN 1+ (NEGATIVE); URINE RBC 1 /hpf (0-4); URINE WBC 7 /hpf (0-5)
[2019-06-04 22:15] LABS: PLATELET ESTIMATE INCREASED
[2019-06-04] MEDS ORDERED: METOCLOPRAMIDE HCL INJECTION 10 MG/2 ML VIAL ONE (22:38)
[2019-06-05] MEDS ORDERED: QUEtiapine FUMARATE 200 MG TABLET PO ONE (00:26)
[2019-06-05] MEDS ORDERED: QUEtiapine FUMARATE 100 MG TABLET (FP) ONE (01:14)
[2019-06-05] MEDS ORDERED: cefTRIAXone SODIUM 1 GM VIAL ONE (01:28)
[2019-06-05 01:41] VITALS: BP 108/74; PULSE 58
--- NOTE | 2019-06-05 11:37 | EKG ---
Test Reason : Blood Pressure : / mmHG Vent. Rate : 056 BPM Atrial Rate : 056 BPM P-R Int : 124 ms QRS Dur : 092 ms QT Int : 472 ms P-R-T Axes : 013 048 008 degrees QTc Int : 455 ms SINUS BRADYCARDIA WITH SINUS ARRHYTHMIA RSR' OR QR PATTERN IN V1 SUGGESTS RIGHT VENTRICULAR CONDUCTION DELAY T WAVE ABNORMALITY, CONSIDER INFERIOR ISCHEMIA T WAVE ABNORMALITY, CONSIDER ANTERIOR ISCHEMIA ABNORMAL ECG WHEN COMPARED WITH ECG OF 04-JUN-2019 16:27, PREMATURE ATRIAL COMPLEXES ARE NO LONGER PRESENT T WAVE INVERSION NOW EVIDENT IN INFERIOR LEADS QT HAS SHORTENED Confirmed by SRUTHI CAPONE MD ([id number]) on 06/05/2019 11:37:11 AM Referred By: Confirmed By:SRUTHI CAPONE MD
== END 2019-06-05 01:41 | disposition home or self-care (01) ==
LOC: JER 19:59
PROC: 3E02329 Introduction of Other Anti-infective into Muscle, Percutaneous Approach (ICD-10-PCS; principal; 2019-06-04)
PROC: 3E023NZ Introduction of Analgesics, Hypnotics, Sedatives into Muscle, Percutaneous Approach (ICD-10-PCS; 2019-06-04)
PROC: 3E023GC Introduction of Other Therapeutic Substance into Muscle, Percutaneous Approach (ICD-10-PCS; 2019-06-04)
DX: R11.2 Nausea with vomiting, unspecified (principal); F31.9 Bipolar disorder, unspecified; F19.10 Other psychoactive substance abuse, uncomplicated
CPT/HCPCS: 36415; 80053; 81003; 83690; 83735; 85025; 93005; 93010; 99283-25

== ENCOUNTER 2019-06-07 12:42 | Inpatient (IN) | payer BC ==
--- NOTE | 2019-06-07 12:51 | PDOC ---
History of Present Illness - General Chief Complaint: Nausea/Vomiting Stated Complaint: VOMITING Time Seen by Provider: 06/07/19 12:50 History Source: Patient Past History - Past Medical History Allergies/Adverse Reactions: Allergies Allergy/AdvReac Type Severity Reaction Status Date / Time No Known Allergies Allergy Verified 06/04/19 20:14 Home Medications: Ambulatory Orders Alprazolam [Xanax] 2 mg PO DAILY 06/03/19 Buprenorphine HCl/Naloxone HCl [Buprenorp-Nalox 8-2 mg Sl Film] 1 each SL DAILY 06/03/19 Ondansetron [Zofran -] 4 mg PO TID PRN 06/03/19 Quetiapine Fumarate [Seroquel] 300 mg PO DAILY 06/03/19 Asthma: No Cardiac Disorders: No COPD: No Diabetes: No GI Disorders: No Disorders: No HTN: No Kidney Stones: No Seizures: No - Surgical History Abdominal Surgery: No Appendectomy: No Cardiac Surgery: No Cholecystectomy: No Lung Surgery: No Neurologic Surgery: No Orthopedic Surgery: No - Suicide/Smoking/Psychosocial Hx Smoking History: Unknown if ever smoked Have you smoked in the past 12 months: No Number of Cigarettes Smoked Daily: 10 Information on smoking cessation initiated: No 'Breaking Loose' booklet given: 06/03/19 Hx Alcohol Use: No Drug/Substance Use Hx: Yes Hx Substance Use Treatment: Yes (last year) Review of Systems - Review of Systems Able to Perform ROS?: Yes *Physical Exam - Vital Signs Last Vital Signs Temp Pulse Resp BP Pulse Ox 98.0 F 76 16 113/71 100 06/07/19 12:44 06/07/19 12:44 06/07/19 12:44 06/07/19 12:44 06/07/19 12:44 ED Treatment Course - LABORATORY CBC & Chemistry Diagram: 06/08/19 05:41 06/08/19 05:41 Medical Decision Making - Medical Decision Making 06/07/19 13:59 Labs resulted - Alk phos - elevated, stable from prior on 06/07/19 AST/ALT - elevated, stable from prior on 06/07/19 WBC, TBili - wnl UA pending Plan for RUQ US to r/o acute gallbladder pathology, IV fluids, nausea control, po challenge once US results Likely dispo home 06/07/19 16:[address] Pace. He will see her inpatient if admitted, if she is safe for discharge he will follow up with her outpatient for elective cholecystectomy. Plan for UA result, nausea control, po challenge, likely discharge home. --- Patient still unable to tolerate po, endorsing ongoing abdominal cramping. Given chronicity of symptoms over the last week, and bounce back with no resolution of symptoms, plan for inpatient admission for severe biliary colic with inability to tolerate po at home. *DC/Admit/Observation/Transfer Diagnosis at time of Disposition: Biliary colic - Discharge Dispostion Condition at time of disposition: Stable Decision to Admit order: Yes - Referrals - Patient Instructions - Post Discharge Activity
[2019-06-07 13:24] LABS: BASO % 0.7 % (0-2.0); EOS % 0.4 % (0-4.5); HEMATOCRIT 38.6 % (32.4-45.2); HEMOGLOBIN 13.5 GM/dL (10.7-15.3); LYMPH % 59.8 % (8-40); MCH 28.2 pg (25.7-33.7); MEAN CELL VOLUME 80.5 fl (80-96); MEAN PLT VOLUME 8.1 fl (7.5-11.1); MONO % 9.8 % (3.8-10.2); NEUT % 29.3 % (42.8-82.8); PLATELET COUNT 434 K/MM3 (134-434); RDW 15.2 % (11.6-15.6); WHITE BLOOD COUNT 7.7 K/mm3 (4.0-10.0)
[2019-06-07 13:40] LABS: BILIRUBIN,TOTAL 0.6 mg/dL (0.2-1); CALCIUM 9.7 mg/dL (8.5-10.1); CREATININE 0.8 mg/dL (0.55-1.3); POTASSIUM 3.7 mmol/L (3.5-5.1); TOT PROT 9.7 g/dl (6.4-8.2)
[2019-06-07 14:00] LABS: ANISOCYTOSIS 0; MACROCYTOSIS 0; PLATELET ESTIMATE NORMAL
[2019-06-07] MEDS ORDERED: ONDANSETRON 4 MG/2 ML VIAL ONE (14:01)
[2019-06-07] MEDS ORDERED: ONDANSETRON 4 MG/2 ML VIAL IVPUSH ONE (14:05)
[2019-06-07] MEDS ORDERED: METOCLOPRAMIDE HCL INJECTION 10 MG/2 ML VIAL IVPUSH ONE (17:57)
[2019-06-07] MEDS ORDERED: METOCLOPRAMIDE HCL INJECTION 10 MG/2 ML VIAL ONE (18:10)
[2019-06-07 18:43] LABS: PH,URINE 5.5 (5.0-8.0); URINE APPEARANCE CLOUDY; URINE BILIRUBIN NEGATIVE (NEGATIVE); URINE COLOR YELLOW; URINE GLUCOSE (UA) NEGATIVE (NEGATIVE); URINE KETONE 3+ (NEGATIVE); URINE LEUK ESTERASE NEGATIVE (NEGATIVE); URINE NITRITE NEGATIVE (NEGATIVE); URINE PROTEIN TRACE (NEGATIVE)
--- NOTE | 2019-06-07 19:12 | PDOC ---
Documentation entered by Piero Cherry SCRIBE, acting as scribe for Herminia Charles MD. Herminia Charles MD: This documentation has been prepared by the Dilip palencia Daniel, SCRIBE, under my direction and personally reviewed by me in its entirety. I confirm that the documentation accurately reflects all work, treatment, procedures, and medical decision making performed by me. Attending Attestation - Resident Resident Name: Bryant Sommer - ED Attending Attestation I have performed the following: I have examined & evaluated the patient, The case was reviewed & discussed with the resident, I agree w/resident's findings & plan, Exceptions are as noted - HPI HPI: 06/07/19 13:43 The patient is a 29 year old female with a past medical history of opioid use disorder here today for evaluation of nausea and vomiting. The patient reports that she went to [facility] 7 days ago for her initial onset of nausea and vomiting and was diagnosed with gallstones and discharged. . Patient is currently at detox at [facility] and notes being diagnosed with a UTI but is unable to tolerate bactrim. She states that she is unable to tolerate any PO intake and describes her emesis as non bloody and non bilious. She also notes epigastric pain. Patient denies headache, lightheadedness. Denies fever, chills. Denies chest pain, shortness of breath. Denies diarrhea. Allergies: NKA PCP: Guru Galindo - Physicial Exam PE: 06/07/19 13:43 agree with resident exam - Medical Decision Making 06/07/19 18:43 29yo F hx gallstones, PSA presents to the ED with N/V, RUQ ttp Labs with mild LFT abnormalities RUQ with nonmobile gallstone Case discussed with Dr. Pace who has reviewed imaging, labs States if pain, nausea well controlled, pt can have cholecystectomy as an outpt If not, he will evaluate in hospital Despite zofran reglan, pt continues to be unable to tolerate PO Plan to admit for further mgmt, surgical evaluation
--- NOTE | 2019-06-07 20:22 | PN ---
Teaching Attending Note ATTENDING PHYSICIAN STATEMENT I saw and evaluated the patient. I reviewed the resident's note and discussed the case with the resident. I agree with the resident's findings and plan as documented. Seen and examined; please refer to resident note for further historical information. Briefly, this is a 29 y/o female presenting to the ER with abdominal pain. Was told she has gallstones; US shows 1.7cm gallstone in the fundus of GB but no neil -itis. She presents from [facility] with intractable vomiting. Completing methadone taper. VS, labs, imaging reviewed NAD, AAO, resting in bed RRR s1/2 Lungs CTAB, w/ sym exp Tender right upper, ND, +BS CN2-12 wnl, no fnd Normal mood, appropriate behavior EKG reviewed CXR reviewed ASSESSMENT AND PLAN: Patient presents with abdominal pain and is found to have stone in GB without - itis. # Abdominal pain -Gastritis vs. biliary pathology vs. WD. Treat symptomatically. NPO for now advance as tolerated with PRN antiemetics, etc. (QTc pending) # Suspected biliary colic -History of stones, positive exam findings. Sgy consulted; consider HIDA. Obstructive pattern noted LFTs (elevated alk phos) but is trending down without bili up. Can consider continue trending vs. HIDA vs. other imaging/GI workup. Could be passed stone; alternatively consider causes of normal duct size with elevated alk phos. # Lymphocytosis with neutopenia -Followup [facility] serology # Drug Abuse -Completing methadone taper today; confirm dose with [facility]. DVT px: SCDs, early amb Full Code
[2019-06-07] MEDS: SODIUM CHLORIDE 1,000 ML IV SCH (20:45)
[2019-06-07] MEDS ORDERED: HEPARIN NA (PORCINE) 5,000 UNITS/ML 1ML VIAL SQ SCH (22:00)
[2019-06-08] MEDS: SODIUM CHLORIDE 1,000 ML IV SCH ×2 (01:48→09:29)
[2019-06-08] MEDS ORDERED: ALPRAZolam 2 MG TABLET PO ONE ×2 (02:08→19:33)
[2019-06-08 06:18] LABS: BASO % 0.2 % (0-2.0); EOS % 0.6 % (0-4.5); HEMATOCRIT 31.2 % (32.4-45.2); HEMOGLOBIN 10.7 GM/dL (10.7-15.3); LYMPH % 62.2 % (8-40); MCH 28.1 pg (25.7-33.7); MCHC 34.2 g/dl (32.0-36.0); MEAN PLT VOLUME 8.3 fl (7.5-11.1); MONO % 11.3 % (3.8-10.2); NEUT % 25.7 % (42.8-82.8); PLATELET COUNT 308 K/MM3 (134-434); RBC 3.81 M/mm3 (3.60-5.2); RDW 14.7 % (11.6-15.6); WHITE BLOOD COUNT 7.1 K/mm3 (4.0-10.0)
[2019-06-08 06:54] LABS: ALBUMIN 2.9 g/dl (3.4-5.0); BILIRUBIN,TOTAL 0.6 mg/dL (0.2-1); BLOOD UREA NITROGEN 10.4 mg/dL (7-18); CALCIUM 8.4 mg/dL (8.5-10.1); CREATININE 0.7 mg/dL (0.55-1.3); MAGNESIUM 2.2 mg/dL (1.8-2.4); POTASSIUM 3.8 mmol/L (3.5-5.1)
[2019-06-08] MEDS ORDERED: METHADONE HCL 10 MG TABLET PO ONE ×2 (10:00→16:25)
[2019-06-08 10:08] LABS: ANISOCYTOSIS 0; MACROCYTOSIS 0; PLATELET ESTIMATE NORMAL
--- NOTE | 2019-06-08 10:55 | CONSULT ---
- Consultation REQUESTING PROVIDER: SARAH MALDONADO CONSULT REQUEST: We have been asked to surgically evaluate this patient for POSSIBLE SYMPTOMATIC GALLBLADDER DISEASE PCP:Yang Fuentes HISTORY OF PRESENT ILLNESS: CARLA who is a 29 y/o female w/ a 20 bag/day heroin use hx.; she has been at different facilities recently for n/v/abdominal pain /methadone tx. and tx. at [facility] for substance abuse; she is not very forthcoming w/her hx.; she denies dark urine/light stools/ffi; she ? denies any other GI/porcelain buildup assistant/ c/o's. She denies FFI per se. PMHx: substance abuse/anxiety PSHx: none Home Medications Medication Instructions Recorded Alprazolam [Xanax] 2 mg PO DAILY 06/03/19 Buprenorphine HCl/Naloxone HCl 1 each SL DAILY 06/03/19 [Buprenorp-Nalox 8-2 mg Sl Film] Ondansetron [Zofran -] 4 mg PO TID PRN 06/03/19 Quetiapine Fumarate [Seroquel] 300 mg PO DAILY 06/03/19 Allergies Allergy/AdvReac Type Severity Reaction Status Date / Time No Known Allergies Allergy Verified 06/04/19 20:14 REVIEW OF SYSTEMS: CONSTITUTIONAL: Absent: fever, chills, diaphoresis, generalized weakness, malaise, loss of appetite, weight change CARDIOVASCULAR: Absent: chest pain, syncope, palpitations, irregular heart rate, lightheadedness , peripheral edema RESPIRATORY: Absent: cough, shortness of breath, dyspnea with exertion, wheezing, stridor, hemoptysis GASTROINTESTINAL: Absent: abdominal pain, abdominal distension, nausea, vomiting, diarrhea, constipation, melena, hematochezia GENITOURINARY: Absent: dysuria, frequency, urgency, hesitancy, hematuria, flank pain, genital pain MUSCULOSKELETAL: Absent: myalgia, arthralgia, joint swelling, back pain, neck pain SKIN: Absent: rash, itching, pallor HEMATOLOGIC/IMMUNOLOGIC: Absent: easy bleeding, easy bruising, lymphadenopathy NEUROLOGIC: Absent: headache, focal weakness, paresthesias, dizziness, unsteady gait, seizure, mental status changes, bladder or bowel incontinence PSYCHIATRIC: Absent: anxiety, depression, suicidal or homicidal ideation, hallucinations. PHYSICAL EXAM: GENERAL: Lethargic, and fully oriented, in no acute distress. HEAD: Normal with no signs of trauma. EYES: sclera anicteric, conjunctiva clear. NECK: Normal ROM, supple without lymphadenopathy, JVD, or masses. ABDOMEN: Soft, nontender, not distended, normoactive bowel sounds, no guarding, no rebound, no masses. No organomegaly. No hernias MUSCULOSKELETAL: Normal ROM at all joints. No bony deformities or tenderness. No CVA tenderness. UPPER EXTREMITIES: 2+ pulses, warm, well-perfused. No cyanosis. Cap refill <2 seconds. No peripheral edema. LOWER EXTREMITIES: 2+ pulses, warm, well-perfused. No calf tenderness. No peripheral edema. NEUROLOGICAL: Normal speech, gait not observed. PSYCH: Cooperative. Good eye contact. Appropriate mood and affect. SKIN: Warm, dry, normal turgor, no rashes or lesions noted. Vital Signs Temperature 98.6 F 06/08/19 08:10 Pulse Rate 64 06/08/19 08:10 Respiratory Rate 18 06/08/19 09:00 Blood Pressure 109/69 06/08/19 08:10 O2 Sat by Pulse Oximetry (%) 100 06/08/19 09:00 Lab Results WBC 7.1 K/mm3 (4.0-10.0) 06/08/19 05:41 RBC 3.81 M/mm3 (3.60-5.2) 06/08/19 05:41 Hgb 10.7 GM/dL (10.7-15.3) 06/08/19 05:41 Hct 31.2 % (32.4-45.2) L D 06/08/19 05:41 MCV 82.0 fl (80-96) 06/08/19 05:41 MCHC 34.2 g/dl (32.0-36.0) 06/08/19 05:41 RDW 14.7 % (11.6-15.6) 06/08/19 05:41 Plt Count 308 K/MM3 (134-434) D 06/08/19 05:41 Sodium 140 mmol/L (136-145) 06/08/19 05:41 Potassium 3.8 mmol/L (3.5-5.1) 06/08/19 05:41 Chloride 106 mmol/L (98-107) 06/08/19 05:41 Carbon Dioxide 25 mmol/L (21-32) 06/08/19 05:41 Anion Gap 9 MMOL/L (8-16) 06/08/19 05:41 BUN 10.4 mg/dL (7-18) 06/08/19 05:41 Creatinine 0.7 mg/dL (0.55-1.3) 06/08/19 05:41 Random Glucose 76 mg/dL (74-106) 06/08/19 05:41 Calcium 8.4 mg/dL (8.5-10.1) L 06/08/19 05:41 Blood Type A POSITIVE 06/08/19 05:41 Antibody Screen Negative 06/08/19 05:41 INR Cancelled 06/07/19 21:00 US/labs reviewed IMP: doubt symptomatic biliary coli and/or acute cholecystitis by hx/labs and imaging PLAN: Advise advance to low fat diet as tolerated and tx. underlying substance abuse disorder; do not believe patient is a candidate for lap ritika at this time Jameson Pace MD FACS
--- NOTE | 2019-06-08 11:29 | EKG ---
Test Reason : Blood Pressure : / mmHG Vent. Rate : 061 BPM Atrial Rate : 061 BPM P-R Int : 116 ms QRS Dur : 080 ms QT Int : 434 ms P-R-T Axes : 000 035 -04 degrees QTc Int : 436 ms NORMAL SINUS RHYTHM RSR' OR QR PATTERN IN V1 SUGGESTS RIGHT VENTRICULAR CONDUCTION DELAY T WAVE ABNORMALITY, CONSIDER ANTERIOR ISCHEMIA ABNORMAL ECG WHEN COMPARED WITH ECG OF 07-JUN-2019 14:06, NO SIGNIFICANT CHANGE IS FOUND Confirmed by ODALYS LITTLE MD ([id number]) on 06/08/2019 11:29:17 AM Referred By: Confirmed By:ODALYS LITTLE MD
--- NOTE | 2019-06-08 11:43 | EKG ---
Test Reason : Blood Pressure : / mmHG Vent. Rate : 074 BPM Atrial Rate : 074 BPM P-R Int : 120 ms QRS Dur : 076 ms QT Int : 420 ms P-R-T Axes : 030 044 -27 degrees QTc Int : 466 ms NORMAL SINUS RHYTHM RSR' OR QR PATTERN IN V1 SUGGESTS RIGHT VENTRICULAR CONDUCTION DELAY T WAVE ABNORMALITY, CONSIDER INFEROLATERAL ISCHEMIA ABNORMAL ECG WHEN COMPARED WITH ECG OF 04-JUN-2019 23:40, NO SIGNIFICANT CHANGE WAS FOUND Confirmed by ODALYS LITTLE MD ([id number]) on 06/08/2019 11:43:32 AM Referred By: Confirmed By:ODALYS LITTLE MD
[2019-06-08] MEDS: ONDANSETRON 4 MG/2 ML VIAL IVPUSH PRN (13:33)
[2019-06-08] MEDS ORDERED: PROCHLORPERAZINE INJECTION 10 MG/2 ML VIAL IVPB ONE (14:41)
[2019-06-08] MEDS: DEXTROSE 5%-NORMAL SALINE 1,000 ML IV SCH (16:14)
[2019-06-08] MEDS ORDERED: METOCLOPRAMIDE HCL INJECTION 10 MG/2 ML VIAL IVPB PRN (16:26)
--- NOTE | 2019-06-08 16:31 | PN ---
Progress Note (short form) - Note Progress Note: c/o nausea and vomiting unable to keep anything down. states her last use of heroin (snorting, but also skin pops) was 7 days ago and has been vomiting since then. was evaluated in the ER on sunday (06/06) and received methadone 25mg IM and sent to [facility] but due to the nausea she has not gotten any more methadone. states her symptoms are more severe than her usual withdrawal symptoms. denies CP, sob, fever, chills, c/d, dysuria or urinary frequnecy Current Medications Generic Name Dose Route Start Last Admin Trade Name Freq PRN Reason Stop Dose Admin Dextrose/Sodium Chloride 1,000 mls @ 100 mls/hr 06/08/19 15:45 06/08/19 16:14 D5-Ns - IV 100 mls/hr ASDIR CARMELLA Administration Ondansetron HCl 4 mg 06/08/19 13:04 06/08/19 13:33 Zofran Injection IVPUSH 4 mg Q8H PRN Administration NAUSEA Last Vital Signs Temp Pulse Resp BP Pulse Ox 98.7 F 67 20 135/77 100 06/08/19 14:38 06/08/19 14:38 06/08/19 14:38 06/08/19 14:38 06/08/19 09:00 General NAD HEENT mydraisis CV S1 S2 RRR no murmur/rub/gallop lungs CTA b/l no wheezing/rales/rhonchi Abdomen soft +RUQ and epigastric tenderness, ND, +flores sign neg CVA tenderness extremities no pilorection CBCD WBC 7.1 K/mm3 (4.0-10.0) 06/08/19 05:41 RBC 3.81 M/mm3 (3.60-5.2) 06/08/19 05:41 Hgb 10.7 GM/dL (10.7-15.3) 06/08/19 05:41 Hct 31.2 % (32.4-45.2) L D 06/08/19 05:41 MCV 82.0 fl (80-96) 06/08/19 05:41 MCHC 34.2 g/dl (32.0-36.0) 06/08/19 05:41 RDW 14.7 % (11.6-15.6) 06/08/19 05:41 Plt Count 308 K/MM3 (134-434) D 06/08/19 05:41 MPV 8.3 fl (7.5-11.1) 06/08/19 05:41 CMP Sodium 140 mmol/L (136-145) 06/08/19 05:41 Potassium 3.8 mmol/L (3.5-5.1) 06/08/19 05:41 Chloride 106 mmol/L (98-107) 06/08/19 05:41 Carbon Dioxide 25 mmol/L (21-32) 06/08/19 05:41 Anion Gap 9 MMOL/L (8-16) 06/08/19 05:41 BUN 10.4 mg/dL (7-18) 06/08/19 05:41 Creatinine 0.7 mg/dL (0.55-1.3) 06/08/19 05:41 Calcium 8.4 mg/dL (8.5-10.1) L 06/08/19 05:41 Total Bilirubin 0.6 mg/dL (0.2-1) 06/08/19 05:41 AST 45 U/L (15-37) H 06/08/19 05:41 ALT 56 U/L (13-61) 06/08/19 05:41 Alkaline Phosphatase 137 U/L (45-117) H 06/08/19 05:41 Total Protein 7.0 g/dl (6.4-8.2) 06/08/19 05:41 Albumin 2.9 g/dl (3.4-5.0) L 06/08/19 05:41 A/P 29yo F [facility] continuous opiate use presented from [facility] for intractable nausea and vomiting and found to have elevated LFT 1. Intractable nausea and vomiting- biliary colic vs opiate withdrawal from Methadone administered on 02/04. COWS 10. will give methadone 10mg and monitor withdrawal symptoms. LFT trending down. u/s showing large stone but normal CBD and no signs of acute cholecystitis. will order HIDA scan to further evaluate. switch IVF to D5NS and reglan prn nausea and vomiting. NPO, surgery on board. 2. Severe dehydration-due to vomiting. +ketones and hemoconcentration evident in labs. now improving. cont IVF 3. hyponatremia- due to dehydration. now resolved 4. DVT ppx- EAM Visit type - Emergency Visit Emergency Visit: Yes ED Registration Date: 06/07/19 Care time: The patient presented to the Emergency Department on the above date and was hospitalized for further evaluation of their emergent condition. - New Patient This patient is new to me today: Yes Date on this admission: 06/08/19 - Critical Care Critical Care patient: No - Discharge Referral Referred to [facility] No
[2019-06-09] MEDS: DEXTROSE 5%-NORMAL SALINE 1,000 ML IV SCH ×2 (02:11→14:29)
[2019-06-09 08:40] LABS: ALBUMIN 3.3 g/dl (3.4-5.0); BILIRUBIN,TOTAL 0.6 mg/dL (0.2-1); BLOOD UREA NITROGEN 4.6 mg/dL (7-18); CALCIUM 9.1 mg/dL (8.5-10.1); CREATININE 0.7 mg/dL (0.55-1.3); POTASSIUM 3.9 mmol/L (3.5-5.1); TOT PROT 7.6 g/dl (6.4-8.2)
[2019-06-09] MEDS: ONDANSETRON 4 MG/2 ML VIAL IVPUSH PRN ×2 (08:57→21:41)
[2019-06-09] MEDS ORDERED: chlordiazePOXIDE HCL 10 MG CAPSULE PO PRN (11:17)
[2019-06-09 11:27] VITALS: BMI 22.6
--- NOTE | 2019-06-09 12:49 | EKG ---
Test Reason : Blood Pressure : / mmHG Vent. Rate : 058 BPM Atrial Rate : 058 BPM P-R Int : 124 ms QRS Dur : 082 ms QT Int : 418 ms P-R-T Axes : 033 052 -17 degrees QTc Int : 410 ms SINUS BRADYCARDIA WITH SINUS ARRHYTHMIA T WAVE ABNORMALITY, CONSIDER ANTERIOR ISCHEMIA ABNORMAL ECG WHEN COMPARED WITH ECG OF 07-JUN-2019 22:28, NO SIGNIFICANT CHANGE WAS FOUND Confirmed by BELIA MALDONADO, AGGIE ([id number]) on 06/09/2019 12:48:49 PM Referred By: KIMBERLEY FABIAN Confirmed By:AGGIE CELAYA MD
[2019-06-09] MEDS ORDERED: PT OWN MED DRAWER 7, Y5N ONE (12:52)
[2019-06-09] MEDS: PROCHLORPERAZINE INJECTION 10 MG/2 ML VIAL IVPB PRN ×2 (12:57→18:15)
--- NOTE | 2019-06-09 13:40 | PN ---
Teaching Attending Note Name of Resident: Olivia López ATTENDING PHYSICIAN STATEMENT I saw and evaluated the patient. I reviewed the resident's note and discussed the case with the resident. I agree with the resident's findings and plan as documented. SUBJECTIVE: No fever or chills. NO FAJARDO , fells anxious , requests somthing for anxiety and IM methadone. last use of xanax was on . last use of heroin on . OBJECTIVE: NAD , pale. dry MM. round equal pupils, reactive to light no facial droop CV: RRR, no MRG Lungs: CATB Ext : no edema or erythema, no tremor. track osman onm arms and popliteal area Abd: soft, TTp in epigastric and RUQ . No rebound tenderness or guarding , ND, NL BS ASSESSMENT AND PLAN: 29 y/o lady with h/o anxiety , and heroin use who presented from [facility] with N/V /Abd pain. 1- N/V/Abd pain: drug use/withdrawal VS r/o cholecystitis vs gastritis - HIDA pending - cont IVF and NPO - add PPI - Monitor LFTs - check trop . EKG reviewed. qtc 410 - cont zofran , dc reglan and add compazine 2- H/o Heroin abuse: ? withdrawal, but last use was . received methadone on sand then yesterday. - will ask Drug detox to evaluate 3- H/o benzo dependence: prescribed xanax was confirmed. - will give lower dose BID to avoid withdrawal 4- volume depletion: improved . but continue IVF 5- DVT PX: add heparin sq
[2019-06-09] MEDS ORDERED: PANTOPRAZOLE SODIUM 40 MG VIAL IVPUSH ONE (13:42)
[2019-06-09] MEDS ORDERED: ALPRAZolam 2 MG TABLET PO SCH (14:00)
[2019-06-09] MEDS: HEPARIN NA (PORCINE) 5,000 UNITS/ML 1ML VIAL SQ SCH ×2 (14:02→21:27)
--- NOTE | 2019-06-09 16:12 | PN ---
Physical Exam: SUBJECTIVE: Patient seen and examined. Patient continues to experience intractable vomiting despite antiemetic therapy. She also complains of epigastric pain and feeling of restlessness and anxiety. OBJECTIVE: Vital Signs Period Temp Pulse Resp BP Sys/Hunt Pulse Ox Last 24 Hr 98.4 F 63 18 108/65 GENERAL: The patient is awake, alert, and fully oriented, in moderate distress. HEAD: Normal with no signs of trauma. EYES: PERRL, extraocular movements intact, sclera anicteric, conjunctiva clear. No ptosis. ENT: Ears normal, nares patent, oropharynx clear without exudates, moist mucous membranes. NECK: Trachea midline, full range of motion, supple. LUNGS: Breath sounds equal, clear to auscultation bilaterally, no wheezes, no crackles, no accessory muscle use. HEART: Regular rate and rhythm, S1, S2 without murmur, rub or gallop. ABDOMEN: Soft, EPIGASTRIC tenderness, nondistended, normoactive bowel sounds, no guarding, no rebound, no hepatosplenomegaly, no masses. EXTREMITIES: 2+ pulses, warm, well-perfused, no edema. NEUROLOGICAL: Cranial nerves II through XII grossly intact. Normal speech, gait not observed. PSYCH: Normal mood, normal affect. SKIN: Warm, dry, normal turgor, no rashes or lesions noted Laboratory Results - last 24 hr 06/09/19 07:37 Sodium 141 Potassium 3.9 Chloride 108 H Carbon Dioxide 25 Anion Gap 7 L BUN 4.6 L Creatinine 0.7 Est GFR (CKD-EPI)AfAm 136.66 Est GFR (CKD-EPI)NonAf 117.91 Random Glucose 94 Calcium 9.1 Total Bilirubin 0.6 AST 47 H ALT 53 Alkaline Phosphatase 138 H Total Protein 7.6 Albumin 3.3 L Active Medications Generic Name Dose Route Start Last Admin Trade Name Freq PRN Reason Stop Dose Admin Alprazolam 2 mg 06/09/19 14:00 06/09/19 14:02 Xanax - PO 2 mg BID CARMELLA Administration Heparin Sodium (Porcine) 5,000 unit 06/09/19 14:00 06/09/19 14:02 Heparin - SQ 5,000 unit TID CARMELLA Administration Dextrose/Sodium Chloride 1,000 mls @ 100 mls/hr 06/08/19 15:45 06/09/19 02:11 D5-Ns - IV 100 mls/hr ASDIR CARMELLA Administration Ondansetron HCl 4 mg 06/08/19 13:04 06/09/19 08:57 Zofran Injection IVPUSH 4 mg Q8H PRN Administration NAUSEA Pantoprazole Sodium 40 mg 06/10/19 10:00 Protonix Iv IVPUSH DAILY CARMELLA Prochlorperazine Edisylate 10 mg 06/09/19 11:26 06/09/19 12:57 Compazine Injection - IVPB 10 mg Q4H PRN Administration NAUSEA AND/OR VOMITING ASSESSMENT/PLAN: #Intractable vomiting and nausea: Follow up on pending HIDA scan patient denied marijuana use Cont IVF and NPO due to persistent vomiting Cont Zofran, reglan discontinued with Compazine added Protonix IV added for GI prophylaxis Monitor LFTs Check trops Ekg reviewed and QTC found to be normal at 410. Nutrition recommended advanced diet as tolerated but since continued vomiting she will remain NPO and advanced when possible. #Severe dehydration Hydration improved. continue IVF #H/O heroin Abuse Detox office doubts this to be a withdrawal due to last use being from the . # H/O benzo dependence Patient suffers from anxiety disorder and confirmed prescription of Xanax Patient received 1mg of prescribed dose of Xanax this afternoon #DVT PPX heparin SubQ Problem List - Problems (1) Biliary colic Code(s): K80.50 - CALCULUS OF BILE DUCT W/O CHOLANGITIS OR CHOLECYST W/O OBST (2) Nausea and vomiting Code(s): R11.2 - NAUSEA WITH VOMITING, UNSPECIFIED Qualifiers: Vomiting type: unspecified Vomiting Intractability: non-intractable Qualified Code(s): R11.2 - Nausea with vomiting, unspecified Visit type - Emergency Visit Emergency Visit: Yes ED Registration Date: 06/07/19 Care time: The patient presented to the Emergency Department on the above date and was hospitalized for further evaluation of their emergent condition. - New Patient This patient is new to me today: Yes Date on this admission: 06/09/19 - Critical Care Critical Care patient: No ATTENDING PHYSICIAN STATEMENT I saw and evaluated the patient. I reviewed the resident's note and discussed the case with the resident. I agree with the resident's findings and plan as documented. SUBJECTIVE: OBJECTIVE: ASSESSMENT AND PLAN:
[2019-06-09] MEDS: lamoTRIgine 100 MG TABLET (FP) PO SCH (21:27)
[2019-06-09] MEDS: DIVALPROEX NA *ER* EXTEND REL 250 MG TABLET.SA PO SCH (21:27)
[2019-06-09] MEDS: QUEtiapine FUMARATE 300 MG TABLET PO SCH (21:27)
[2019-06-09] MEDS: ALPRAZolam 2 MG TABLET PO SCH (21:27)
[2019-06-09] MEDS ORDERED: PATIENT'S OWN MEDICATION (NON-FORMULARY) (Dextroamphetamine/Amphetamine [Adderall Xr 30 Mg PO SCH (22:00)
[2019-06-10] MEDS ORDERED: CYCLOBENZAPRINE HCL 10 MG TABLET (FP) PO ONE (01:48)
[2019-06-10] MEDS ORDERED: ZOLPIDEM TARTRATE 5 MG TABLET PO PRN (01:49)
[2019-06-10] MEDS: HEPARIN NA (PORCINE) 5,000 UNITS/ML 1ML VIAL SQ SCH ×3 (06:24→22:59)
[2019-06-10 07:40] LABS: ALBUMIN 2.9 g/dl (3.4-5.0); BILIRUBIN,TOTAL 0.4 mg/dL (0.2-1); CALCIUM 8.7 mg/dL (8.5-10.1); CREATININE 0.6 mg/dL (0.55-1.3); POTASSIUM 3.2 mmol/L (3.5-5.1); TOT PROT 6.9 g/dl (6.4-8.2)
[2019-06-10 08:20] LABS: BLOOD UREA NITROGEN 1.5 mg/dL (7-18)
[2019-06-10] MEDS ORDERED: PT OWN MED DRAWER 7, Y5N ONE ×2 (08:36→10:07)
[2019-06-10] MEDS: ALPRAZolam 2 MG TABLET PO SCH ×2 (09:47→22:59)
[2019-06-10] MEDS: PANTOPRAZOLE SODIUM 40 MG VIAL IVPUSH SCH (09:47)
[2019-06-10] MEDS: QUEtiapine FUMARATE 300 MG TABLET PO SCH ×2 (09:48→22:59)
[2019-06-10] MEDS: lamoTRIgine 100 MG TABLET (FP) PO SCH ×3 (09:48→23:00)
[2019-06-10] MEDS: DIVALPROEX NA *ER* EXTEND REL 250 MG TABLET.SA PO SCH (09:48)
[2019-06-10] MEDS ORDERED: POTASSIUM CHLORIDE TABS 20 MEQ TABLET.ER (FP) PO ONE (11:39)
--- NOTE | 2019-06-10 14:54 | PN ---
"[facility] Progress Note Note: pt referred for consultation 29 y.o. w/ opioid dependence , transferred from [facility] for abdominal pain , r/o gastritis , per pt states she is feeling better today . MR reviewed - opiate use x 2 years , previously on MAT w/ Suboxone , unclear if compliant . per MR pt completed opiate detox protocol 06/07/17 . Active Medications Alprazolam (Xanax -) 1 mg PO BID [facility] Last Admin: 06/10/19 09:47 Dose: 1 mg Divalproex Sodium (Depakote *Er* -) 250 mg PO BID [facility] Last Admin: 06/10/19 09:48 Dose: 250 mg Heparin Sodium (Porcine) (Heparin -) 5,000 unit SQ TID [facility] Last Admin: 06/10/19 13:14 Dose: Not Given Dextrose/Sodium Chloride (D5-Ns -) 1,000 mls @ 100 mls/hr IV ASDIR [facility] Last Admin: 06/09/19 14:29 Dose: 100 mls/hr Lamotrigine (Lamictal -) 100 mg PO BID [facility] Last Admin: 06/10/19 09:53 Dose: Not Given Non-Formulary Medication (Dextroamphetamine/Amphetamine [Adderall Xr 30 Mg Capsule]) 30 mg PO BID [facility] Ondansetron HCl (Zofran Injection) 4 mg IVPUSH Q8H PRN PRN Reason: NAUSEA Last Admin: 06/09/19 21:41 Dose: 4 mg Pantoprazole Sodium (Protonix Iv) 40 mg IVPUSH DAILY [facility] Last Admin: 06/10/19 09:47 Dose: Not Given Prochlorperazine Edisylate (Compazine Injection -) 10 mg IVPB Q4H PRN PRN Reason: NAUSEA AND/OR VOMITING Last Admin: 06/09/19 18:15 Dose: 10 mg Quetiapine Fumarate (Seroquel -) 300 mg PO BID [facility] Last Admin: 06/10/19 09:48 Dose: 300 mg Zolpidem Tartrate (Ambien -) 5 mg PO HS PRN PRN Reason: INSOMNIA Stop: 06/11/19 01:48 Last Admin: 06/10/19 02:03 Dose: 5 mg [employer] MACHINE OPERATOR database verified : This report was requested by: Elzbieta Bell | Reference #: [id number] Others' Prescriptions Patient Name: Fernanda Brown Date: 1990 Address: [address] [place] [address] [place] [address] Sex: Female Rx Written Rx Dispensed Drug Quantity Days Supply Prescriber Name 05/19/2019 05/19/2019 dextroamp-amphetamin 30 mg tab 60 30 Sciales, Guru Lockhart MD 05/19/2019 05/19/2019 alprazolam 2 mg tablet 60 30 Sciales, Guru Lockhart MD 05/19/2019 05/19/2019 buprenorphine-naloxone 8-2 mg sl film 30 30 Sciales, Guru Lockhart MD 04/21/2019 04/21/2019 dextroamp-amphetamin 30 mg tab 60 30 Sciales, Guru Lockhart MD 04/21/2019 04/21/2019 alprazolam 2 mg tablet 60 30 Sciales, Guru Lockhart MD 04/21/2019 04/21/2019 buprenorphine-naloxone 8-2 mg sl film 30 30 Sciales, Guru Lockhart MD 03/25/2019 03/25/2019 dextroamp-amphetamin 30 mg tab 60 30 Sciales, Guru Lockhart MD 03/25/2019 03/25/2019 buprenorphine-naloxone 8-2 mg sl film 30 30 Sciales, Guru Lockhart MD 03/25/2019 03/25/2019 alprazolam 2 mg tablet 60 30 Sciales, Guru Lockhart MD 02/17/2019 02/17/2019 dextroamp-amphetamin 30 mg tab 60 30 Sciales, Guru Lockhart MD 02/17/2019 02/17/2019 alprazolam 2 mg tablet 60 30 Sciales, Guru Lockhart MD 01/13/2019 01/13/2019 dextroamp-amphetamin 30 mg tab 60 30 Sciales, Guru Lockhart MD 01/13/2019 01/13/2019 alprazolam 2 mg tablet 60 30 Sciales, Guru Lockhart MD 10/24/2018 10/24/2018 dextroamp-amphetamin 20 mg tab 60 30 Sciales, Guru Lockhart MD 10/24/2018 10/24/2018 buprenorphine-naloxone 8-2 mg sl tablet 60 30 Sciales, Guru Lockhart MD 10/24/2018 10/24/2018 alprazolam 2 mg tablet 60 30 Sciales, Guru Lockhart MD O : NAD , resting comfortably in bed , no distress noted . Pt w/ opioid dependence , previously on MAT w/ Suboxone , completed Methadone taper 06/07/19 and is agreeable to f/up w/ primary prescriber upon d/c . please re-consult as needed ."
--- NOTE | 2019-06-10 16:19 | DS ---
Physical Exam: SUBJECTIVE: Patient seen and examined. Patient no longer complains of Nausea and vomiting and is feeling much better. OBJECTIVE: Vital Signs Period Temp Pulse Resp BP Sys/Hunt Pulse Ox Last 24 Hr 9.0 F-98.6 F 76-88 18-18 110-121/60-79 97-100 PHYSICAL EXAM GENERAL: The patient is awake, alert, and fully oriented, in no acute distress. EYES: PERRL, extraocular movements intact, sclera anicteric, conjunctiva clear. ENT: Ears normal, nares patent, oropharynx clear without exudates, moist mucous membranes. NECK: Trachea midline, full range of motion, supple. LUNGS: Breath sounds equal, clear to auscultation bilaterally, no wheezes, no crackles, no accessory muscle use. HEART: Regular rate and rhythm, S1, S2 without murmur, rub or gallop. ABDOMEN: Soft, nontender, nondistended, normoactive bowel sounds, no guarding, no rebound, no hepatosplenomegaly, no masses. EXTREMITIES: 2+ pulses, warm, well-perfused, no edema. NEUROLOGICAL: Cranial nerves II through XII grossly intact. Normal speech, gait not observed. PSYCH: Normal mood, normal affect. SKIN: Warm, dry, normal turgor, no rashes or lesions noted. LABS Laboratory Results - last 24 hr 06/10/19 06:36 Sodium 144 Potassium 3.2 L Chloride 108 H Carbon Dioxide 29 Anion Gap 7 L BUN 1.5 L* Creatinine 0.6 Est GFR (CKD-EPI)AfAm 143.77 Est GFR (CKD-EPI)NonAf 124.04 Random Glucose 98 Calcium 8.7 Total Bilirubin 0.4 AST 38 H ALT 44 Alkaline Phosphatase 119 H Total Protein 6.9 Albumin 2.9 L HOSPITAL COURSE: Date of Admission:06/07/19 Date of Discharge: 06/10/19 Discharge Summary Reason For Visit: NASEU,VOMITING,BILARY COLIC Current Active Problems Biliary colic (Acute) Condition: Stable - Instructions Diet, Activity, Other Instructions: You came into the ED with intractable nausea and vomiting. You were then found to have elevated liver functions that will later need to be reevaluated in two weeks with a complete metabolic panel as an outpatient. Your symptoms have improved significantly and therefore you are ready to be discharged home. Medications You are able to resume all of your home medications at their prescribed doses. Follow up We suggest that you make an appointment for the following services in order to further care. Please follow up with the cash management specialist Dr Bell so that she can help you with you substance abuse Please follow up with your PCP Dr Galindo so that he can reevaluate your liver function status within one week. If any bleeding, nausea/vomiting, shortness of breath, chest pain occur, please return or go to the nearest emergency immediately Referrals: Guru Galindo [Primary Care Provider] - 1 Week Elzbieta Bell DO [Staff Physician] - 1 Week Disposition: HOME - Home Medications Comprehensive Discharge Medication List: Ambulatory Orders Buprenorphine HCl/Naloxone HCl [Buprenorp-Nalox 8-2 mg Sl Film] 1 each SL DAILY 06/03/19 Quetiapine Fumarate [Seroquel] 300 mg PO BID 06/03/19 Alprazolam 2 mg PO BID 06/09/19 Dextroamphetamine/Amphetamine [Adderall Xr 30 mg Capsule] 30 mg PO BID 06/09/19 Divalproex *ER* [Depakote *ER* -] 250 mg PO BID 06/09/19 Lamotrigine 100 mg PO BID 06/09/19 Problem List - Problems (1) Biliary colic Code(s): K80.50 - CALCULUS OF BILE DUCT W/O CHOLANGITIS OR CHOLECYST W/O OBST (2) Nausea and vomiting Code(s): R11.2 - NAUSEA WITH VOMITING, UNSPECIFIED Qualifiers: Vomiting type: unspecified Vomiting Intractability: non-intractable Qualified Code(s): R11.2 - Nausea with vomiting, unspecified - Discharge Referral Referred to [facility] No ATTENDING PHYSICIAN STATEMENT I saw and evaluated the patient. I reviewed the resident's note and discussed the case with the resident. I agree with the resident's findings and plan as documented. SUBJECTIVE: OBJECTIVE: ASSESSMENT AND PLAN:
--- NOTE | 2019-06-10 19:07 | PN ---
Teaching Attending Note Name of Resident: Alix Vidales ATTENDING PHYSICIAN STATEMENT I saw and evaluated the patient. I reviewed the resident's note and discussed the case with the resident. I agree with the resident's findings and plan as documented. SUBJECTIVE: no pain in abd , no CP . No FAJARDO , no fever or chills. feels better today. nausea improved OBJECTIVE: NAD , pale. MMM CV: RRR, no MRG Lungs: CATB Ext: no edema or erythema, no tremor. track osman on arms and popliteal area Abd: soft, NT. NL BS ASSESSMENT AND PLAN: 29 y/o lady with h/o anxiety, and heroin use who presented from [facility] with N /V /Abd pain. 1- N/V/Abd pain: LIKELY DUE TO DRUGS OR WITHDRAWAL FROM DRUGS - cont symptomatic treatment - Neg HIDA - cont zofran and compazine PRN - diet as tolerated 2- H/o Heroin abuse: finished methadone at [facility]. No more - f/u as out pt withher subaxone prescriber ( was on subaxone in past ) 3- H/o benzo dependence: prescribed xanax was confirmed. ( 2 mg BID ) -cont 1 mg BID here in a trial to taper off as out pt - advised to f/u with psych fro evaluationof her anxiety and use of different agents 4- volume depletion: improved . but continue IVF 5- DVT PX: add heparin sq ASSESSMENT AND PLAN:
--- NOTE | 2019-06-10 19:18 | PN ---
Physical Exam: SUBJECTIVE: Patient seen and examined. Pt is currently with minimal epigastric pain and mild nausea but no vomiting . Patient complained of insonmia overnight requiring one dose of zolpidem. patient received cyclobenzaprine for possible muscle tightness. OBJECTIVE: Vital Signs Period Temp Pulse Resp BP Sys/Hunt Pulse Ox Last 24 Hr 9.0 F-98.6 F 76-99 18-18 93-121/56-79 97-100 GENERAL: The patient is awake, alert, and fully oriented, in no acute distress. HEAD: Normal with no signs of trauma. NECK: Trachea midline, full range of motion, supple. LUNGS: Breath sounds equal, clear to auscultation bilaterally, no wheezes, no crackles, no accessory muscle use. HEART: Regular rate and rhythm, S1, S2 without murmur, rub or gallop. ABDOMEN: Soft,very mild epigastric tenderness, nondistended, normoactive bowel sounds, no guarding, no rebound, no hepatosplenomegaly, no masses. EXTREMITIES: 2+ pulses, warm, well-perfused, no edema. PSYCH: Normal mood, normal affect. SKIN: Warm, dry, normal turgor, teact osman noted on extremities Laboratory Results - last 24 hr 06/10/19 06:36 Sodium 144 Potassium 3.2 L Chloride 108 H Carbon Dioxide 29 Anion Gap 7 L BUN 1.5 L* Creatinine 0.6 Est GFR (CKD-EPI)AfAm 143.77 Est GFR (CKD-EPI)NonAf 124.04 Random Glucose 98 Calcium 8.7 Total Bilirubin 0.4 AST 38 H ALT 44 Alkaline Phosphatase 119 H Total Protein 6.9 Albumin 2.9 L Active Medications Generic Name Dose Route Start Last Admin Trade Name Freq PRN Reason Stop Dose Admin Alprazolam 1 mg 06/09/19 22:00 06/10/19 09:47 Xanax - PO 1 mg BID CARMELLA Administration Divalproex Sodium 250 mg 06/10/19 22:00 Depakote *Er* - PO 06/10/19 22:01 ONCE ONE Divalproex Sodium 500 mg 06/11/19 22:00 Depakote *Er* - PO HS CARMELLA Heparin Sodium (Porcine) 5,000 unit 06/09/19 14:00 06/10/19 13:14 Heparin - SQ Not Given TID CARMELLA Dextrose/Sodium Chloride 1,000 mls @ 100 mls/hr 06/08/19 15:45 06/09/19 14:29 D5-Ns - IV 100 mls/hr ASDIR CARMELLA Administration Lamotrigine 100 mg 06/09/19 22:00 06/10/19 09:53 Lamictal - PO Not Given BID CARMELLA Non-Formulary Medication 30 mg 06/09/19 22:00 Dextroamphetamine/Amphetamine [Adderall Xr 30 Mg Capsule] PO BID [facility] Non-Formulary Medication 1 each 06/10/19 22:00 Patient's Own Med PO BID CARMELLA Ondansetron HCl 4 mg 06/08/19 13:04 06/09/19 21:41 Zofran Injection IVPUSH 4 mg Q8H PRN Administration NAUSEA Pantoprazole Sodium 40 mg 06/10/19 10:00 06/10/19 09:47 Protonix Iv IVPUSH Not Given DAILY [facility] Prochlorperazine Edisylate 10 mg 06/09/19 11:26 06/09/19 18:15 Compazine Injection - IVPB 10 mg Q4H PRN Administration NAUSEA AND/OR VOMITING Quetiapine Fumarate 300 mg 06/09/19 22:00 06/10/19 09:48 Seroquel - PO 300 mg BID CARMELLA Administration ASSESSMENT/PLAN: 29 year old female with a past medical history of substance abuse disorder here today for evaluation of nausea and vomiting. Intractable vomiting and nausea significantly improved patient initially switch to PO fluids but had been unable to tolerate so we switched her back to IV fluids to ensure adequate hydration potassium repleted orally after 3.2 found on labs follow metabolic panel t/m HIDA negative for acute cholecystitis LFTs trending down treat symptoms as needed for N/V Severe dehydration Significantly improved but continue IVF 2/2 poor oral intake Heroin abuse and H/o benzo dependence finished methadone at [facility]. f/u as outpatient since she was on subaxone prior to admission cont 1 mg BID for her anxiety f/u with psych for evaluation of her constant anxiety and possible SSRIs. DVT PPX Heparin subQ but not given Problem List - Problems (1) Biliary colic Code(s): K80.50 - CALCULUS OF BILE DUCT W/O CHOLANGITIS OR CHOLECYST W/O OBST (2) Nausea and vomiting Code(s): R11.2 - NAUSEA WITH VOMITING, UNSPECIFIED Qualifiers: Vomiting type: unspecified Vomiting Intractability: non-intractable Qualified Code(s): R11.2 - Nausea with vomiting, unspecified Visit type - Emergency Visit Emergency Visit: Yes ED Registration Date: 06/07/19 Care time: The patient presented to the Emergency Department on the above date and was hospitalized for further evaluation of their emergent condition. - New Patient This patient is new to me today: Yes Date on this admission: 06/10/19 - Critical Care Critical Care patient: No ATTENDING PHYSICIAN STATEMENT I saw and evaluated the patient. I reviewed the resident's note and discussed the case with the resident. I agree with the resident's findings and plan as documented. SUBJECTIVE: OBJECTIVE: ASSESSMENT AND PLAN:
[2019-06-10] MEDS ORDERED: ONDANSETRON 4 MG TABLET PO ONE (19:30)
[2019-06-10] MEDS ORDERED: PROCHLORPERAZINE MALEATE 5 MG TABLET PO ONE (21:44)
[2019-06-10] MEDS ORDERED: DIVALPROEX NA *ER* EXTEND REL 250 MG TABLET.SA PO ONE (22:00)
[2019-06-10] MEDS: DEXTROSE 5%-NORMAL SALINE 1,000 ML IV SCH (22:59)
[2019-06-10] MEDS ORDERED: HYDROCORTISONE 0.5% TOPICAL CREAM 30 GM TUBE TP PRN (23:09)
[2019-06-11] MEDS ORDERED: ONDANSETRON 4 MG TABLET PO ONE (02:30)
[2019-06-11] MEDS ORDERED: CYCLOBENZAPRINE HCL 5 MG TABLET PO ONE (03:01)
[2019-06-11] MEDS: HEPARIN NA (PORCINE) 5,000 UNITS/ML 1ML VIAL SQ SCH ×3 (06:59→21:45)
[2019-06-11 08:00] LABS: CALCIUM 9.3 mg/dL (8.5-10.1); CREATININE 0.7 mg/dL (0.55-1.3); POTASSIUM 3.1 mmol/L (3.5-5.1)
[2019-06-11 08:17] LABS: BLOOD UREA NITROGEN 2.4 mg/dL (7-18)
[2019-06-11] MEDS ORDERED: PROCHLORPERAZINE MALEATE 5 MG TABLET PO PRN (09:24)
[2019-06-11] MEDS ORDERED: ONDANSETRON 4 MG TABLET PO PRN (09:30)
[2019-06-11] MEDS: PANTOPRAZOLE SODIUM 40 MG VIAL IVPUSH SCH (11:13)
[2019-06-11] MEDS: lamoTRIgine 100 MG TABLET (FP) PO SCH ×2 (11:13→21:46)
[2019-06-11] MEDS ORDERED: POTASSIUM CHLORIDE TABS 20 MEQ TABLET.ER (FP) PO ONE (11:45)
[2019-06-11] MEDS: ALPRAZolam 2 MG TABLET PO SCH ×2 (12:16→21:45)
[2019-06-11] MEDS: QUEtiapine FUMARATE 300 MG TABLET PO SCH ×2 (12:17→21:45)
[2019-06-11] MEDS: DEXTROSE 5%-NORMAL SALINE 1,000 ML IV SCH ×2 (12:22→16:34)
[2019-06-11] MEDS: PROCHLORPERAZINE INJECTION 10 MG/2 ML VIAL IVPB PRN ×2 (15:22→20:22)
[2019-06-11] MEDS ORDERED: KCL 10 MEQ IVPB 10 MEQ/100 ML INFUS.BAG IVPB SCH (15:30)
--- NOTE | 2019-06-11 16:07 | PN ---
Physical Exam: SUBJECTIVE: Patient seen and examined. Overnight patient had some nausea responsive to PO zofran and PO compazine. No pain. Pt noticed increased redness in bump on right thigh. Overnight resident gace topical hydrocortisone cream with some relief. In the afternoon, patient complained of increased nausea and vomited x 2 after PO fluid. Patient refused meals and PO potassium for electrolyte repletion. OBJECTIVE: Vital Signs Period Temp Pulse Resp BP Sys/Hunt Pulse Ox Last 24 Hr 97.9 F-98.9 F 75-99 18-18 93-127/56-78 97-100 GENERAL: The patient is awake, alert, and fully oriented, in no acute distress. HEAD: Normal with no signs of trauma. ENT:moist mucous membranes. LUNGS: Breath sounds equal, clear to auscultation bilaterally, no wheezes, no crackles, no accessory muscle use. HEART: Regular rate and rhythm, S1, S2 without murmur, rub or gallop. ABDOMEN: Soft, mild tenderness, nondistended, normoactive bowel sounds, no guarding, no rebound, no hepatosplenomegaly, no masses. EXTREMITIES: 2+ pulses, warm, well-perfused, no edema. SKIN: Warm, dry, normal turgor, track osman noted on extremities Laboratory Results - last 24 hr 06/11/19 06:43 Sodium 142 Potassium 3.1 L Chloride 106 Carbon Dioxide 29 Anion Gap 7 L BUN 2.4 L* Creatinine 0.7 Est GFR (CKD-EPI)AfAm 136.66 Est GFR (CKD-EPI)NonAf 117.91 Random Glucose 94 Calcium 9.3 Magnesium 2.0 Active Medications Generic Name Dose Route Start Last Admin Trade Name Freq PRN Reason Stop Dose Admin Alprazolam 1 mg 06/09/19 22:00 06/11/19 12:16 Xanax - PO 1 mg BID CARMELLA Administration Divalproex Sodium 500 mg 06/11/19 22:00 Depakote *Er* - PO HS CARMELLA Heparin Sodium (Porcine) 5,000 unit 06/09/19 14:00 06/11/19 14:12 Heparin - SQ 5,000 unit TID CARMELLA Administration Hydrocortisone 1 applic 06/10/19 23:09 Hytone 0.5% Cream - TP BID PRN Pruritis Dextrose/Sodium Chloride 1,000 mls @ 100 mls/hr 06/08/19 15:45 06/11/19 12:22 D5-Ns - IV 100 mls/hr ASDIR CARMELLA Administration Potassium Chloride 10 meq in 100 mls @ 100 mls/hr 06/11/19 15:30 Potassium Chloride 10 Meq Premix Ivpb - IVPB 06/11/19 18:29 Q60M CARMELLA Lamotrigine 100 mg 06/09/19 22:00 06/11/19 11:13 Lamictal - PO Not Given BID [facility] Non-Formulary Medication 30 mg 06/09/19 22:00 Dextroamphetamine/Amphetamine [Adderall Xr 30 Mg Capsule] PO BID [facility] Non-Formulary Medication 1 each 06/10/19 22:00 Patient's Own Med PO BID [facility] Ondansetron HCl 4 mg 06/08/19 13:04 06/09/19 21:41 Zofran Injection IVPUSH 4 mg Q8H PRN Administration NAUSEA Ondansetron HCl 4 mg 06/11/19 09:30 06/11/19 11:12 Zofran - PO 4 mg Q8H PRN Administration NAUSEA Pantoprazole Sodium 40 mg 06/10/19 10:00 06/10/19 09:47 Protonix Iv IVPUSH Not Given DAILY [facility] Prochlorperazine Edisylate 10 mg 06/09/19 11:26 06/11/19 15:22 Compazine Injection - IVPB 10 mg Q4H PRN Administration NAUSEA AND/OR VOMITING Prochlorperazine Maleate 10 mg 06/11/19 09:24 06/11/19 10:30 Compazine - PO 10 mg Q4H PRN Administration NAUSEA AND/OR VOMITING Quetiapine Fumarate 300 mg 06/09/19 22:00 06/11/19 12:17 Seroquel - PO 300 mg BID CARMELLA Administration ASSESSMENT/PLAN: 29 year old female with a past medical history of substance abuse disorder here today for evaluation of nausea and vomiting. Intractable vomiting and nausea patient initially switch to PO fluids and has been refusing PO meds so we switched her back to IV fluids to ensure adequate hydration and potassium 10 meq/100 ml repletion IV after repeated CMP showed a potassium of 3.1 treat N/V PRN Severe dehydration Significantly improved but continue IVF 2/2 poor oral intake Heroin abuse and H/o benzo dependence Patient has been denied at [facility] 2/2 undiagnosed caused of N/V. needs to be medically clears before rehab cont 1 mg BID for her anxiety f/u with psych for evaluation of her constant anxiety and possible SSRIs. DVT PPX Heparin subQ Problem List - Problems (1) Biliary colic Code(s): K80.50 - CALCULUS OF BILE DUCT W/O CHOLANGITIS OR CHOLECYST W/O OBST (2) Nausea and vomiting Code(s): R11.2 - NAUSEA WITH VOMITING, UNSPECIFIED Qualifiers: Vomiting type: unspecified Vomiting Intractability: non-intractable Qualified Code(s): R11.2 - Nausea with vomiting, unspecified Visit type - Emergency Visit Emergency Visit: Yes ED Registration Date: 06/07/19 Care time: The patient presented to the Emergency Department on the above date and was hospitalized for further evaluation of their emergent condition. - New Patient This patient is new to me today: No - Critical Care Critical Care patient: No - Discharge Referral Referred to [facility] Med [facility].C[facility] No ATTENDING PHYSICIAN STATEMENT I saw and evaluated the patient. I reviewed the resident's note and discussed the case with the resident. I agree with the resident's findings and plan as documented. SUBJECTIVE: OBJECTIVE: ASSESSMENT AND PLAN:
[2019-06-11] MEDS: ONDANSETRON 4 MG/2 ML VIAL IVPUSH PRN (18:52)
--- NOTE | 2019-06-11 19:06 | PN ---
Teaching Attending Note Name of Resident: Alix Vidales ATTENDING PHYSICIAN STATEMENT I saw and evaluated the patient. I reviewed the resident's note and discussed the case with the resident. I agree with the resident's findings and plan as documented. SUBJECTIVE: Patient is comfortable with no acute distress, except feeling nauseas. no fever or chills. OBJECTIVE: Vital Signs Temperature 98.8 F 06/11/19 17:41 Pulse Rate 75 06/11/19 17:41 Respiratory Rate 18 06/11/19 17:41 Blood Pressure 101/61 06/11/19 17:41 O2 Sat by Pulse Oximetry (%) 100 06/11/19 09:00 GENERAL: The patient is awake, alert, and fully oriented, in no acute distress. HEAD: Normal with no signs of trauma. EYES: PERRL, extraocular movements intact, sclera anicteric, conjunctiva clear. ENT: Ears normal, oropharynx clear without exudates, moist mucous membranes. NECK: Trachea midline, full range of motion, supple. LUNGS: Breath sounds equal, clear to auscultation bilaterally, no wheezes, no crackles, no accessory muscle use. HEART: Regular rate and rhythm, S1, S2 without murmur, rub or gallop. ABDOMEN: Soft, nontender, nondistended, normoactive bowel sounds, no guarding, no rebound, no hepatosplenomegaly, no masses. EXTREMITIES: 2+ pulses, warm, well-perfused, no edema. NEUROLOGICAL: Cranial nerves II through XII grossly intact. Normal speech, gait not observed. PSYCH: Normal mood, normal affect. SKIN: Warm, dry, normal turgor, no rashes or lesions noted CBCD WBC 7.1 K/mm3 (4.0-10.0) 06/08/19 05:41 RBC 3.81 M/mm3 (3.60-5.2) 06/08/19 05:41 Hgb 10.7 GM/dL (10.7-15.3) 06/08/19 05:41 Hct 31.2 % (32.4-45.2) L D 06/08/19 05:41 MCV 82.0 fl (80-96) 06/08/19 05:41 MCHC 34.2 g/dl (32.0-36.0) 06/08/19 05:41 RDW 14.7 % (11.6-15.6) 06/08/19 05:41 Plt Count 308 K/MM3 (134-434) D 06/08/19 05:41 MPV 8.3 fl (7.5-11.1) 06/08/19 05:41 CMP Sodium 142 mmol/L (136-145) 06/11/19 06:43 Potassium 3.1 mmol/L (3.5-5.1) L 06/11/19 06:43 Chloride 106 mmol/L (98-107) 06/11/19 06:43 Carbon Dioxide 29 mmol/L (21-32) 06/11/19 06:43 Anion Gap 7 MMOL/L (8-16) L 06/11/19 06:43 BUN 2.4 mg/dL (7-18) L* 06/11/19 06:43 Creatinine 0.7 mg/dL (0.55-1.3) 06/11/19 06:43 Random Glucose 94 mg/dL (74-106) 06/11/19 06:43 Calcium 9.3 mg/dL (8.5-10.1) 06/11/19 06:43 Total Bilirubin 0.4 mg/dL (0.2-1) 06/10/19 06:36 AST 38 U/L (15-37) H 06/10/19 06:36 ALT 44 U/L (13-61) 06/10/19 06:36 Alkaline Phosphatase 119 U/L (45-117) H 06/10/19 06:36 Total Protein 6.9 g/dl (6.4-8.2) 06/10/19 06:36 Albumin 2.9 g/dl (3.4-5.0) L 06/10/19 06:36 Current Medications Generic Name Dose Route Start Last Admin Trade Name Freq PRN Reason Stop Dose Admin Alprazolam 1 mg 06/09/19 22:00 06/11/19 12:16 Xanax - PO 1 mg BID CARMELLA Administration Divalproex Sodium 500 mg 06/11/19 22:00 Depakote *Er* - PO HS CARMELLA Heparin Sodium (Porcine) 5,000 unit 06/09/19 14:00 06/11/19 14:12 Heparin - SQ 5,000 unit TID CARMELLA Administration Hydrocortisone 1 applic 06/10/19 23:09 Hytone 0.5% Cream - TP BID PRN Pruritis Dextrose/Sodium Chloride 1,000 mls @ 100 mls/hr 06/08/19 15:45 06/11/19 16:34 D5-Ns - IV Not Given ASDIR [facility] Potassium Chloride 40 meq/ 1,020 mls @ 100 mls/hr 06/11/19 18:30 Sodium Chloride IV Q10H [facility] Lamotrigine 100 mg 06/09/19 22:00 06/11/19 11:13 Lamictal - PO Not Given BID CAR[facility]LL[facility] Non-Formulary Medication 30 mg 06/09/19 22:00 Dextroamphetamine/Amphetamine [Adderall Xr 30 Mg Capsule] PO BID [facility] Non-Formulary Medication 1 each 06/10/19 22:00 Patient's Own Med PO BID [facility] Ondansetron HCl 4 mg 06/08/19 13:04 06/11/19 18:52 Zofran Injection IVPUSH 4 mg Q8H PRN Administration NAUSEA Ondansetron HCl 4 mg 06/11/19 09:30 06/11/19 11:12 Zofran - PO 4 mg Q8H PRN Administration NAUSEA Pantoprazole Sodium 40 mg 06/10/19 10:00 06/10/19 09:47 Protonix Iv IVPUSH Not Given DAILY [facility] Prochlorperazine Edisylate 10 mg 06/09/19 11:26 06/11/19 15:22 Compazine Injection - IVPB 10 mg Q4H PRN Administration NAUSEA AND/OR VOMITING Prochlorperazine Maleate 10 mg 06/11/19 09:24 06/11/19 10:30 Compazine - PO 10 mg Q4H PRN Administration NAUSEA AND/OR VOMITING Quetiapine Fumarate 300 mg 06/09/19 22:00 06/11/19 12:17 Seroquel - PO 300 mg BID [facility] Administration Home Medications Medication Instructions Recorded Buprenorphine HCl/Naloxone HCl 1 each SL DAILY 06/03/19 [Buprenorp-Nalox 8-2 mg Sl Film] Quetiapine Fumarate [Seroquel] 600 mg PO DAILY 06/03/19 Alprazolam 2 mg PO BID 06/09/19 Dextroamphetamine/Amphetamine 30 mg PO BID 06/09/19 [Adderall Xr 30 mg Capsule] Divalproex *ER* [Depakote *ER* -] 500 mg PO HS 06/09/19 Lamotrigine 100 mg PO BID 06/09/19 ASSESSMENT AND PLAN: Patient is a 29yo female with PMhx of anxiety, and heroin use who presented from [facility] with N/V /Abd pain. # Acute Intractable Nausea and vomiting continues: LIKELY withdrawing FROM DRUGS , continue Zofran and compazine prn. - Neg HIDA , diet as tolerated # Hx of Heroin abuse: finished methadone at [facility]. - f/u as out pt with her subaxone prescriber ( was on subaxone in past ) # Hx of benzo dependence: prescribed xanax was confirmed. ( 2 mg BID ) -cont 1 mg BID here in a trial to taper off as out pt -advised to f/u with psych fro evaluation of her anxiety and use of different agents # volume depletion: improved . but continue IVF # electrolyte imbalance: low potassium replete DVT PX: heparin sq
[2019-06-11] MEDS: SODIUM CHLORIDE 1,000 ML with POTASSIUM CHLORIDE 40 MEQ IV SCH (20:21)
[2019-06-11] MEDS: DIVALPROEX NA *ER* EXTEND REL 500 MG TABLET.SA (FP) PO SCH (21:46)
[2019-06-11] MEDS ORDERED: PT OWN MED DRAWER 7, Y5N ONE (22:30)
[2019-06-11] MEDS: HYDROCORTISONE 1% TOPICAL CREAM 30 GM TUBE TP PRN (22:37)
[2019-06-12] MEDS: HEPARIN NA (PORCINE) 5,000 UNITS/ML 1ML VIAL SQ SCH ×3 (06:39→22:00)
[2019-06-12 08:04] LABS: CALCIUM 8.9 mg/dL (8.5-10.1); CREATININE 0.7 mg/dL (0.55-1.3); POTASSIUM 3.6 mmol/L (3.5-5.1)
[2019-06-12] MEDS: HYDROCORTISONE 1% TOPICAL CREAM 30 GM TUBE TP PRN (08:20)
[2019-06-12] MEDS: PROCHLORPERAZINE INJECTION 10 MG/2 ML VIAL IVPB PRN (08:24)
[2019-06-12 08:33] LABS: BLOOD UREA NITROGEN 2.7 mg/dL (7-18)
[2019-06-12] MEDS: PANTOPRAZOLE SODIUM 40 MG VIAL IVPUSH SCH (09:15)
[2019-06-12] MEDS: lamoTRIgine 100 MG TABLET (FP) PO SCH ×3 (09:42→23:50)
[2019-06-12] MEDS: SODIUM CHLORIDE 1,000 ML with POTASSIUM CHLORIDE 40 MEQ IV SCH (10:45)
[2019-06-12] MEDS: ONDANSETRON 4 MG/2 ML VIAL IVPUSH PRN (12:25)
[2019-06-12] MEDS: QUEtiapine FUMARATE 300 MG TABLET PO SCH ×4 (13:49→23:20)
[2019-06-12] MEDS: ALPRAZolam 2 MG TABLET PO SCH (13:49)
--- NOTE | 2019-06-12 14:01 | PN ---
Teaching Attending Note Name of Resident: Alix Vidales ATTENDING PHYSICIAN STATEMENT I saw and evaluated the patient. I reviewed the resident's note and discussed the case with the resident. I agree with the resident's findings and plan as documented. SUBJECTIVE: Patient is feeling better, no further vomiting, but afraid to eat OBJECTIVE: Vital Signs Temperature 98.7 F 06/12/19 13:33 Pulse Rate 72 06/12/19 13:33 Respiratory Rate 18 06/12/19 13:33 Blood Pressure 129/75 06/12/19 13:33 O2 Sat by Pulse Oximetry (%) 100 06/12/19 09:00 GENERAL: The patient is awake, alert, and fully oriented, in no acute distress. HEAD: Normal with no signs of trauma. EYES: PERRL, extraocular movements intact, sclera anicteric, conjunctiva clear. ENT: Ears normal, oropharynx clear without exudates, moist mucous membranes. NECK: Trachea midline, full range of motion, supple. LUNGS: Breath sounds equal, clear to auscultation bilaterally, no wheezes, no crackles, no accessory muscle use. HEART: Regular rate and rhythm, S1, S2 without murmur, rub or gallop. ABDOMEN: Soft, nontender, nondistended, normoactive bowel sounds, no guarding, no rebound, no hepatosplenomegaly, no masses. EXTREMITIES: 2+ pulses, warm, well-perfused, no edema. NEUROLOGICAL: Cranial nerves II through XII grossly intact. Normal speech, gait not observed. PSYCH: Normal mood, normal affect. SKIN: Warm, dry, normal turgor, no rashes or lesions noted CBCD WBC 7.1 K/mm3 (4.0-10.0) 06/08/19 05:41 RBC 3.81 M/mm3 (3.60-5.2) 06/08/19 05:41 Hgb 10.7 GM/dL (10.7-15.3) 06/08/19 05:41 Hct 31.2 % (32.4-45.2) L D 06/08/19 05:41 MCV 82.0 fl (80-96) 06/08/19 05:41 MCHC 34.2 g/dl (32.0-36.0) 06/08/19 05:41 RDW 14.7 % (11.6-15.6) 06/08/19 05:41 Plt Count 308 K/MM3 (134-434) D 06/08/19 05:41 MPV 8.3 fl (7.5-11.1) 06/08/19 05:41 CMP Sodium 142 mmol/L (136-145) 06/12/19 06:34 Potassium 3.6 mmol/L (3.5-5.1) 06/12/19 06:34 Chloride 108 mmol/L (98-107) H 06/12/19 06:34 Carbon Dioxide 29 mmol/L (21-32) 06/12/19 06:34 Anion Gap 5 MMOL/L (8-16) L 06/12/19 06:34 BUN 2.7 mg/dL (7-18) L* 06/12/19 06:34 Creatinine 0.7 mg/dL (0.55-1.3) 06/12/19 06:34 Random Glucose 89 mg/dL (74-106) 06/12/19 06:34 Calcium 8.9 mg/dL (8.5-10.1) 06/12/19 06:34 Total Bilirubin 0.4 mg/dL (0.2-1) 06/10/19 06:36 AST 38 U/L (15-37) H 06/10/19 06:36 ALT 44 U/L (13-61) 06/10/19 06:36 Alkaline Phosphatase 119 U/L (45-117) H 06/10/19 06:36 Total Protein 6.9 g/dl (6.4-8.2) 06/10/19 06:36 Albumin 2.9 g/dl (3.4-5.0) L 06/10/19 06:36 Current Medications Generic Name Dose Route Start Last Admin Trade Name Freq PRN Reason Stop Dose Admin Alprazolam 1 mg 06/09/19 22:00 06/12/19 13:49 Xanax - PO 1 mg BID CARMELLA Administration Divalproex Sodium 500 mg 06/11/19 22:00 06/11/19 21:46 Depakote *Er* - PO Not Given HS CARMELLA Heparin Sodium (Porcine) 5,000 unit 06/09/19 14:00 06/12/19 13:53 Heparin - SQ 5,000 unit TID CARMELLA Administration Hydrocortisone 1 applic 06/11/19 20:20 06/11/19 22:37 Hytone 1% Cream - TP 1 appful BID PRN Administration Pruritis Potassium Chloride 40 meq/ 1,020 mls @ 100 mls/hr 06/11/19 18:30 06/12/19 10: 45 Sodium Chloride IV 06/12/19 14:29 100 mls/hr Q10H CARMELLA Administration Lamotrigine 100 mg 06/09/19 22:00 06/12/19 09:42 Lamictal - PO Not Given BID [facility] Non-Formulary Medication 1 each 06/10/19 22:00 Patient's Own Med PO BID CARMELLA Ondansetron HCl 4 mg 06/08/19 13:04 06/12/19 12:25 Zofran Injection IVPUSH 4 mg Q8H PRN Administration NAUSEA Pantoprazole Sodium 40 mg 06/10/19 10:00 06/12/19 09:15 Protonix Iv IVPUSH 40 mg DAILY CARMELLA Administration Prochlorperazine Edisylate 10 mg 06/09/19 11:26 06/12/19 08:24 Compazine Injection - IVPB 10 mg Q4H PRN Administration NAUSEA AND/OR VOMITING Quetiapine Fumarate 300 mg 06/09/19 22:00 06/12/19 13:57 Seroquel - PO Not Given BID [facility] Home Medications Medication Instructions Recorded Buprenorphine HCl/Naloxone HCl 1 each SL DAILY 06/03/19 [Buprenorp-Nalox 8-2 mg Sl Film] Quetiapine Fumarate [Seroquel] 600 mg PO DAILY 06/03/19 Alprazolam 2 mg PO BID 06/09/19 Dextroamphetamine/Amphetamine 30 mg PO BID 06/09/19 [Adderall Xr 30 mg Capsule] Divalproex *ER* [Depakote *ER* -] 500 mg PO HS 06/09/19 Lamotrigine 100 mg PO BID 06/09/19 Hydrocortisone 1% Cream [Hytone 1% 1 applic TP BID PRN #1 tube 06/12/19 Cream -] Patient's Own Medication 1 each PO BID med 06/12/19 [Patient's Own Med (Nf) -] HIDA: is negative ASSESSMENT AND PLAN: Patient is a 29yo female with PMhx of anxiety, and heroin use who presented from [facility] with N/V /Abd pain. # Acute Intractable Nausea and vomiting improving : LIKELY withdrawing FROM DRUGS , continue Zofran and compazine prn. diet as tolerated , no fatty food and abstinence from the illicit drugs # Hx of Heroin abuse: finished methadone at [facility]. - f/u as out pt with her subaxone prescriber ( was on subaxone in past ) # Hx of benzo dependence: prescribed xanax was confirmed. ( 2 mg BID ) -cont 1 mg BID here in a trial to taper off as out pt -advised to f/u with psych fro evaluation of her anxiety and use of different agents # volume depletion: improved . but continue IVF # electrolyte imbalance: replete and monitor DVT PX: heparin sq
[2019-06-12] MEDS ORDERED: ONDANSETRON 4 MG TABLET PO ONE (18:42)
[2019-06-12] MEDS: PROCHLORPERAZINE MALEATE 5 MG TABLET PO PRN (20:41)
[2019-06-12] MEDS: DIVALPROEX NA *ER* EXTEND REL 500 MG TABLET.SA (FP) PO SCH (23:20)
[2019-06-12] MEDS ORDERED: ONDANSETRON *ODT* 4 MG TABLET SL PRN (23:24)
[2019-06-12] MEDS ORDERED: ONDANSETRON 4 MG/2 ML VIAL IM ONE (23:34)
[2019-06-13] MEDS: HEPARIN NA (PORCINE) 5,000 UNITS/ML 1ML VIAL SQ SCH ×4 (00:03→22:33)
[2019-06-13] MEDS: ALPRAZolam 2 MG TABLET PO SCH ×3 (00:25→22:33)
[2019-06-13] MEDS: HYDROCORTISONE 1% TOPICAL CREAM 30 GM TUBE TP PRN (06:47)
[2019-06-13] MEDS: QUEtiapine FUMARATE 300 MG TABLET PO SCH ×2 (11:03→22:34)
[2019-06-13] MEDS: PANTOPRAZOLE SODIUM 40 MG VIAL IVPUSH SCH (11:03)
[2019-06-13] MEDS: lamoTRIgine 100 MG TABLET (FP) PO SCH ×2 (11:04→22:33)
--- NOTE | 2019-06-13 11:28 | PN ---
Teaching Attending Note Name of Resident: Alix Vidales ATTENDING PHYSICIAN STATEMENT I saw and evaluated the patient. I reviewed the resident's note and discussed the case with the resident. I agree with the resident's findings and plan as documented. SUBJECTIVE: Patient was not able to go home yesterday since continued to throw up. better today. OBJECTIVE: Vital Signs Temperature 97.9 F 06/13/19 09:56 Pulse Rate 89 06/13/19 09:56 Respiratory Rate 16 06/13/19 09:56 Blood Pressure 115/57 L 06/13/19 09:56 O2 Sat by Pulse Oximetry (%) 100 06/12/19 21:00 GENERAL: The patient is awake, alert, and fully oriented, in no acute distress. HEAD: Normal with no signs of trauma. EYES: PERRL, extraocular movements intact, sclera anicteric, conjunctiva clear. ENT: Ears normal, oropharynx clear without exudates, moist mucous membranes. NECK: Trachea midline, full range of motion, supple. LUNGS: Breath sounds equal, clear to auscultation bilaterally, no wheezes, no crackles, no accessory muscle use. HEART: Regular rate and rhythm, S1, S2 without murmur, rub or gallop. ABDOMEN: Soft, Nt,ND, normoactive bowel sounds, no guarding, no rebound, no hepatosplenomegaly, no masses. EXTREMITIES: 2+ pulses, warm, well-perfused, no edema. NEUROLOGICAL: Cranial nerves II through XII grossly intact. Normal speech, gait not observed. PSYCH: Normal mood, normal affect. SKIN: Warm, dry, normal turgor, no rashes or lesions noted CBCD WBC 7.1 K/mm3 (4.0-10.0) 06/08/19 05:41 RBC 3.81 M/mm3 (3.60-5.2) 06/08/19 05:41 Hgb 10.7 GM/dL (10.7-15.3) 06/08/19 05:41 Hct 31.2 % (32.4-45.2) L D 06/08/19 05:41 MCV 82.0 fl (80-96) 06/08/19 05:41 MCHC 34.2 g/dl (32.0-36.0) 06/08/19 05:41 RDW 14.7 % (11.6-15.6) 06/08/19 05:41 Plt Count 308 K/MM3 (134-434) D 06/08/19 05:41 MPV 8.3 fl (7.5-11.1) 06/08/19 05:41 CMP Sodium 142 mmol/L (136-145) 06/12/19 06:34 Potassium 3.6 mmol/L (3.5-5.1) 06/12/19 06:34 Chloride 108 mmol/L (98-107) H 06/12/19 06:34 Carbon Dioxide 29 mmol/L (21-32) 06/12/19 06:34 Anion Gap 5 MMOL/L (8-16) L 06/12/19 06:34 BUN 2.7 mg/dL (7-18) L* 06/12/19 06:34 Creatinine 0.7 mg/dL (0.55-1.3) 06/12/19 06:34 Random Glucose 89 mg/dL (74-106) 06/12/19 06:34 Calcium 8.9 mg/dL (8.5-10.1) 06/12/19 06:34 Total Bilirubin 0.4 mg/dL (0.2-1) 06/10/19 06:36 AST 38 U/L (15-37) H 06/10/19 06:36 ALT 44 U/L (13-61) 06/10/19 06:36 Alkaline Phosphatase 119 U/L (45-117) H 06/10/19 06:36 Total Protein 6.9 g/dl (6.4-8.2) 06/10/19 06:36 Albumin 2.9 g/dl (3.4-5.0) L 06/10/19 06:36 Current Medications Generic Name Dose Route Start Last Admin Trade Name Freq PRN Reason Stop Dose Admin Alprazolam 1 mg 06/09/19 22:00 06/13/19 11:03 Xanax - PO 1 mg BID CARMELLA Administration Divalproex Sodium 500 mg 06/11/19 22:00 06/12/19 23:20 Depakote *Er* - PO Not Given HS CARMELLA Heparin Sodium (Porcine) 5,000 unit 06/09/19 14:00 06/13/19 05:51 Heparin - SQ Not Given TID CARMELLA Hydrocortisone 1 applic 06/11/19 20:20 06/13/19 06:47 Hytone 1% Cream - TP 1 appful BID PRN Administration Pruritis Lamotrigine 100 mg 06/09/19 22:00 06/13/19 11:04 Lamictal - PO Not Given BID [facility] Non-Formulary Medication 1 each 06/10/19 22:00 Patient's Own Med PO BID CARMELLA Pantoprazole Sodium 40 mg 06/10/19 10:00 06/13/19 11:03 Protonix Iv IVPUSH 40 mg DAILY [facility] Administration Prochlorperazine Maleate 5 mg 06/12/19 18:43 06/12/19 20:41 Compazine - PO 5 mg Q4H PRN Administration NAUSEA AND/OR VOMITING Quetiapine Fumarate 300 mg 06/09/19 22:00 06/13/19 11:03 Seroquel - PO Not Given BID [facility] Home Medications Medication Instructions Recorded Buprenorphine HCl/Naloxone HCl 1 each SL DAILY 06/03/19 [Buprenorp-Nalox 8-2 mg Sl Film] Quetiapine Fumarate [Seroquel] 600 mg PO DAILY 06/03/19 Alprazolam 2 mg PO BID 06/09/19 Dextroamphetamine/Amphetamine 30 mg PO BID 06/09/19 [Adderall Xr 30 mg Capsule] Divalproex *ER* [Depakote *ER* -] 500 mg PO HS 06/09/19 Lamotrigine 100 mg PO BID 06/09/19 Hydrocortisone 1% Cream [Hytone 1% 1 applic TP BID PRN #1 tube 06/12/19 Cream -] Patient's Own Medication 1 each PO BID med 06/12/19 [Patient's Own Med (Nf) -] ASSESSMENT AND PLAN: Patient is a 29yo female with PMhx of anxiety, and heroin use who presented from [facility] with N/V /Abd pain. # Acute Intractable Nausea and vomiting : improved LIKELY withdrawing FROM DRUGS , continue Zofran and compazine prn. - Neg HIDA , diet as tolerated # Hx of Heroin abuse: finished methadone at [facility]. f/u as out pt with her subaxone prescriber ( was on subaxone in past ) # Hx of benzo dependence: prescribed xanax was confirmed. ( 2 mg BID ), follow up with the psych. to get off the medication; Xanax as an outpatient ,for evaluation of her anxiety and use of different agents # volume depletion: improved . # electrolyte imbalance: repleted DVT PX: heparin sq discharge patient home or rehab program
--- NOTE | 2019-06-13 17:43 | DS ---
Physical Exam: SUBJECTIVE: Patient seen and examined. Pt looks well and in no acute distress. OBJECTIVE: Vital Signs Period Temp Pulse Resp BP Sys/Hunt Pulse Ox Last 24 Hr 97.9 F-99 F 76-89 16-18 100-143/57-84 100-100 PHYSICAL EXAM GENERAL: The patient is awake, alert, and fully oriented, in no acute distress. LUNGS: Breath sounds equal, clear to auscultation bilaterally, no wheezes, no crackles, no accessory muscle use. HEART: Regular rate and rhythm, S1, S2 without murmur, rub or gallop. ABDOMEN: Soft, mild epigatric tenderness, nondistended, normoactive bowel sounds , no guarding, no rebound, no hepatosplenomegaly, no masses. EXTREMITIES: 2+ pulses, warm, well-perfused, no edema. LABS CBC, BMP 06/08/19 05:41 06/12/19 06:34 RUQ U/S 06/07/19 Gallstone. However no significant mobility noted although shadowing is seen HIDA 06/09/19 Filling of the gallbladder excludes acute cystic duct obstruction Chest Xray 06/13/19 No acute chest pathology. HOSPITAL COURSE: Date of Admission:06/07/19 29 year old female with a past medical history of substance abuse disorder and gallstones admitted for intractable nausea and vomiting from [facility] [place].In the ED , CBC was ordered then found negative for leukocytosis and CMP showed elevated LFTS.A RUQ U/S was negative for cholecystitis.Due to recurrent N/V and RUQ pain HIDA scan was ordered then found to be negative for occlusion of cystic duct. Pt later became hypokalemic 3.2due to continuous vomiting and poor oral intak which we repleted with IV then PO potassium which later resolved to normal 3.6. Patient severe dehydration was resolved with IVF with continuous oral fluid intake. Pt symptoms eventually subsided and patient was discharged with a Follow up appointment with Dr Galindo in one week. Date of Discharge: 06/13/19 Minutes to complete discharge: 25 Discharge Summary Reason For Visit: NASEU,VOMITING,BILARY COLIC Current Active Problems Biliary colic (Acute) Condition: Stable - Instructions Diet, Activity, Other Instructions: You came into the ED with intractable nausea and vomiting. You were then found to have elevated liver functions accompanying the nausea and vomiting but both the Right upper quadrant ultrasound and HIDA scan came back negative for acute cholecystitis. Your symptoms have improved significantly and therefore you are ready to be discharged home. Medications You are able to resume all of your home medications at their prescribed doses. You will also be going on with a NEW medication: Hydrocortisone cream 1% cream for you thigh lesion. Follow up Please follow up with your PCP Dr Galindo so that he can reevaluate your liver function tests within one week. We recommend you see someone regarding your substance abuse. If any bleeding, nausea/vomiting, shortness of breath, chest pain occur, please return or go to the nearest emergency immediately Referrals: Guru Galindo [Primary Care Provider] - 1 Week Disposition: HOME - Home Medications Comprehensive Discharge Medication List: Ambulatory Orders Buprenorphine HCl/Naloxone HCl [Buprenorp-Nalox 8-2 mg Sl Film] 1 each SL DAILY 06/03/19 Quetiapine Fumarate [Seroquel] 600 mg PO DAILY 06/03/19 Alprazolam 2 mg PO BID 06/09/19 Dextroamphetamine/Amphetamine [Adderall Xr 30 mg Capsule] 30 mg PO BID 06/09/19 Divalproex *ER* [Depakote *ER* -] 500 mg PO HS 06/09/19 Lamotrigine 100 mg PO BID 06/09/19 Hydrocortisone 1% Cream [Hytone 1% Cream -] 1 applic TP BID PRN #1 tube Patient's Own Medication [Patient's Own Med (Nf) -] 1 each PO BID med 06/12/19 Problem List - Problems (1) Biliary colic Code(s): K80.50 - CALCULUS OF BILE DUCT W/O CHOLANGITIS OR CHOLECYST W/O OBST (2) Nausea and vomiting Code(s): R11.2 - NAUSEA WITH VOMITING, UNSPECIFIED Qualifiers: Vomiting type: unspecified Vomiting Intractability: non-intractable Qualified Code(s): R11.2 - Nausea with vomiting, unspecified This patient is new to me today: No Emergency Visit: Yes ED Registration Date: 06/07/19 Care time: The patient presented to the Emergency Department on the above date and was hospitalized for further evaluation of their emergent condition. Critical Care patient: No - Discharge Referral Referred to [facility] No ATTENDING PHYSICIAN STATEMENT I saw and evaluated the patient. I reviewed the resident's note and discussed the case with the resident. I agree with the resident's findings and plan as documented. SUBJECTIVE: OBJECTIVE: ASSESSMENT AND PLAN:
[2019-06-13] MEDS: PROCHLORPERAZINE MALEATE 5 MG TABLET PO PRN (20:40)
[2019-06-13] MEDS ORDERED: ONDANSETRON 4 MG/2 ML VIAL IM ONE (22:28)
[2019-06-13] MEDS: DIVALPROEX NA *ER* EXTEND REL 500 MG TABLET.SA (FP) PO SCH (22:33)
[2019-06-14] MEDS: HEPARIN NA (PORCINE) 5,000 UNITS/ML 1ML VIAL SQ SCH ×2 (06:05→13:35)
[2019-06-14] MEDS: PANTOPRAZOLE SODIUM 40 MG VIAL IVPUSH SCH (09:03)
[2019-06-14] MEDS: QUEtiapine FUMARATE 300 MG TABLET PO SCH (09:12)
[2019-06-14] MEDS: ALPRAZolam 2 MG TABLET PO SCH (09:12)
[2019-06-14] MEDS: lamoTRIgine 100 MG TABLET (FP) PO SCH (09:13)
[2019-06-14] MEDS ORDERED: METOCLOPRAMIDE HCL 10 MG TABLET (FP) PO ONE (10:30)
[2019-06-14 10:44] VITALS: BP 124/77; PULSE 97; TEMP 98.2
[2019-06-14] MEDS ORDERED: METOCLOPRAMIDE HCL INJECTION 10 MG/2 ML VIAL IM ONE (11:11)
== END 2019-06-14 16:19 | disposition home or self-care (01) | DRG 773 ==
LOC: JER 12:42 → J7W 19:46
PROVIDERS: ADMIT Internal Medicine; ATTEND Internal Medicine
PROC: HZ2ZZZZ Detoxification Services for Substance Abuse Treatment (ICD-10-PCS; principal; 2019-06-07)
DX: F11.23 Opioid dependence with withdrawal (principal); K80.20 Calculus of gallbladder without cholecystitis without obstruction; R11.2 Nausea with vomiting, unspecified; D70.9 Neutropenia, unspecified; E87.1 Hypo-osmolality and hyponatremia; R10.9 Unspecified abdominal pain; E87.6 Hypokalemia
CPT/HCPCS: 36415; 71045-TC-FY; 76705-TC; 78226-TC; 80048; 80053; 81003; 83690; 83735; 84703; 85025; 86376; 86850; 86900; 86901; 87086; 93005; 93010; 99284-25; A9537; J1644; J7030

== ENCOUNTER 2022-08-14 12:59 | Inpatient (IN) | payer BC ==
[2022-08-14 15:51] VITALS: BMI 21.9
[2022-08-14] MEDS ORDERED: IBUPROFEN 600 MG TABLET (FP) PO PRN (16:45)
[2022-08-14] MEDS ORDERED: NICOTINE POLACRILEX 2 MG GUM BUC PRN (16:45)
[2022-08-14] MEDS ORDERED: MAGNESIUM CITRATE 300 ML BOTTLE PO PRN (16:45)
[2022-08-14] MEDS ORDERED: MAGNESIUM HYDROX 2400MG/30ML ORAL SUSPENSION 30 ML CUP PO PRN (16:45)
[2022-08-14] MEDS ORDERED: IBUPROFEN 400 MG TABLET (FP) PO PRN (16:45)
[2022-08-14] MEDS ORDERED: BISMUTH SUBSALICYLATE 524 MG/30 ML PO PRN (16:45)
[2022-08-14] MEDS ORDERED: LOPERAMIDE HCL 2 MG CAPSULE PO PRN (16:45)
[2022-08-14] MEDS ORDERED: DICYCLOMINE HCL 10 MG CAPSULE PO PRN (16:45)
[2022-08-14] MEDS ORDERED: cloNIDine HCL 0.1 MG TABLET PO PRN (16:45)
[2022-08-14] MEDS ORDERED: ONDANSETRON *ODT* 4 MG TABLET SL PRN (16:45)
[2022-08-14] MEDS ORDERED: NALOXONE HCL (KLOXXADO) 8 MG SPRAY NS PRN (16:45)
[2022-08-14] MEDS ORDERED: methaDONE HCL 10 MG TABLET (FOR DETOX USE ONLY) PO ONE (16:45)
[2022-08-14] MEDS ORDERED: ACETAMINOPHEN 325 MG TABLET (FP) PO PRN ×2 (16:45)
[2022-08-14] MEDS ORDERED: BENZOCAINE/MENTHOL (CHLORASEPTIC ) LOZENGE MM PRN (16:45)
[2022-08-14] MEDS ORDERED: MAG HYDROX/AL HYDROX/SIMETH 30 ML UNIT-DOSE CUP PO PRN (16:45)
[2022-08-14] MEDS: PRENATAL VITAMINS W/ FOLIC ACID TABLET (FP) PO SCH (17:37)
[2022-08-14] MEDS: HYDROCORTISONE 1% TOPICAL OINT 30 GM TUBE TP SCH (21:42)
[2022-08-14] MEDS: THIAMINE HCL 100 MG TABLET (FP) PO SCH (21:43)
[2022-08-14] MEDS: LORazepam 1 MG TABLET PO PRN (21:43)
[2022-08-14] MEDS ORDERED: MELATONIN 5 MG TABLETS PO SCH (22:00)
[2022-08-14] MEDS: NICOTINE 10 MG CARTRIDGE (INHALER) IH PRN (22:04)
[2022-08-14] MEDS ORDERED: hydrOXYzine PAMOATE 25 MG CAPSULE (FP) PO ONE (22:35)
[2022-08-15] MEDS: PRENATAL VITAMINS W/ FOLIC ACID TABLET (FP) PO SCH (10:21)
[2022-08-15] MEDS: METHOCARBAMOL 500 MG TABLET PO PRN ×2 (10:21→22:37)
[2022-08-15] MEDS: HYDROCORTISONE 1% TOPICAL OINT 30 GM TUBE TP SCH ×2 (10:22→22:35)
[2022-08-15] MEDS: NICOTINE 10 MG CARTRIDGE (INHALER) IH PRN ×2 (10:24→22:22)
[2022-08-15] MEDS: QUEtiapine FUMARATE 200 MG TABLET PO SCH ×2 (13:22→22:35)
[2022-08-15] MEDS: BENZTROPINE MESYLATE 1 MG TABLET PO SCH ×2 (13:22→22:35)
[2022-08-15] MEDS: ARIPiprazole 10 MG TABLET PO SCH (13:22)
[2022-08-15] MEDS: LORazepam 1 MG TABLET PO PRN ×2 (13:25→22:35)
[2022-08-15] MEDS: THIAMINE HCL 100 MG TABLET (FP) PO SCH (22:35)
[2022-08-16] MEDS: PRENATAL VITAMINS W/ FOLIC ACID TABLET (FP) PO SCH (09:48)
[2022-08-16] MEDS: BENZTROPINE MESYLATE 1 MG TABLET PO SCH ×2 (09:48→22:28)
[2022-08-16] MEDS: ARIPiprazole 10 MG TABLET PO SCH (09:49)
[2022-08-16] MEDS: QUEtiapine FUMARATE 200 MG TABLET PO SCH ×2 (09:49→22:22)
[2022-08-16] MEDS: HYDROCORTISONE 1% TOPICAL OINT 30 GM TUBE TP SCH ×2 (09:53→22:20)
[2022-08-16] MEDS ORDERED: methaDONE HCL 10 MG TABLET (FOR DETOX USE ONLY) PO ONE (10:00)
[2022-08-16] MEDS: NICOTINE 10 MG CARTRIDGE (INHALER) IH PRN ×2 (10:37→17:46)
[2022-08-16] MEDS: LORazepam 1 MG TABLET PO PRN ×2 (10:38→22:22)
[2022-08-16 13:22] LABS: HEMATOCRIT 32.4 % (32.4-45.2); MCH 28.3 pg (25.7-33.7); MEAN CELL VOLUME 83.2 fl (80-96); MEAN PLT VOLUME 7.7 fl (7.5-11.1); PLATELET COUNT 316 10^3/uL (134-434); RBC 3.89 M/mm3 (3.60-5.2); RDW 17.9 % (11.6-15.6); WHITE BLOOD COUNT 3.4 K/mm3 (4.0-10.0)
[2022-08-16 13:39] LABS: CALCIUM 9.3 mg/dL (8.5-10.1)
[2022-08-16 13:40] LABS: ALBUMIN 3.2 g/dl (3.4-5.0); BLOOD UREA NITROGEN 5.8 mg/dL (7-18)
[2022-08-16 13:43] LABS: CREATININE 0.7 mg/dL (0.55-1.3)
[2022-08-16 13:44] LABS: BILIRUBIN,TOTAL 0.2 mg/dL (0.2-1); TOT PROT 7.7 g/dl (6.4-8.2)
[2022-08-16] MEDS: METHOCARBAMOL 500 MG TABLET PO PRN (17:44)
[2022-08-16] MEDS: THIAMINE HCL 100 MG TABLET (FP) PO SCH (22:22)
[2022-08-16] MEDS: diphenhydrAMINE HCL 25 MG CAPSULE (FP) PO PRN (23:55)
[2022-08-17] MEDS: METHOCARBAMOL 500 MG TABLET PO PRN (01:37)
[2022-08-17] MEDS: BENZTROPINE MESYLATE 1 MG TABLET PO SCH ×2 (10:48→23:41)
[2022-08-17] MEDS: ARIPiprazole 10 MG TABLET PO SCH (10:48)
[2022-08-17] MEDS: PRENATAL VITAMINS W/ FOLIC ACID TABLET (FP) PO SCH (10:49)
[2022-08-17] MEDS: QUEtiapine FUMARATE 200 MG TABLET PO SCH ×2 (10:49→23:41)
[2022-08-17] MEDS: HYDROCORTISONE 1% TOPICAL OINT 30 GM TUBE TP SCH ×2 (10:49→23:40)
[2022-08-17] MEDS: THIAMINE HCL 100 MG TABLET (FP) PO SCH (23:40)
[2022-08-18] MEDS ORDERED: methaDONE HCL 10 MG TABLET (FOR DETOX USE ONLY) PO ONE (10:00)
[2022-08-18] MEDS: ARIPiprazole 10 MG TABLET PO SCH (11:00)
[2022-08-18] MEDS: QUEtiapine FUMARATE 200 MG TABLET PO SCH ×2 (11:00→22:14)
[2022-08-18] MEDS: BENZTROPINE MESYLATE 1 MG TABLET PO SCH ×2 (11:00→22:14)
[2022-08-18] MEDS: PRENATAL VITAMINS W/ FOLIC ACID TABLET (FP) PO SCH (11:00)
[2022-08-18] MEDS: HYDROCORTISONE 1% TOPICAL OINT 30 GM TUBE TP SCH ×2 (11:01→22:37)
[2022-08-18] MEDS: METHOCARBAMOL 500 MG TABLET PO PRN (17:48)
[2022-08-18] MEDS: LORazepam 1 MG TABLET PO PRN (17:48)
[2022-08-18] MEDS: NICOTINE 10 MG CARTRIDGE (INHALER) IH PRN (20:29)
[2022-08-18] MEDS: THIAMINE HCL 100 MG TABLET (FP) PO SCH (22:14)
[2022-08-18] MEDS: diphenhydrAMINE HCL 25 MG CAPSULE (FP) PO PRN (22:14)
[2022-08-19] MEDS: QUEtiapine FUMARATE 200 MG TABLET PO SCH ×2 (09:56→23:11)
[2022-08-19] MEDS: ARIPiprazole 10 MG TABLET PO SCH (09:56)
[2022-08-19] MEDS: BENZTROPINE MESYLATE 1 MG TABLET PO SCH ×2 (09:56→23:11)
[2022-08-19] MEDS: PRENATAL VITAMINS W/ FOLIC ACID TABLET (FP) PO SCH (09:57)
[2022-08-19] MEDS: HYDROCORTISONE 1% TOPICAL OINT 30 GM TUBE TP SCH ×2 (09:57→23:11)
[2022-08-19 10:14] VITALS: BP 110/78; PULSE 101; RESP 16; TEMP 97.5
[2022-08-19] MEDS: THIAMINE HCL 100 MG TABLET (FP) PO SCH (23:12)
== END 2022-08-19 23:55 | disposition short-term general hospital (02) | DRG 773 ==
LOC: YASAS 12:59 → Y3N 16:27
PROVIDERS: ADMIT Allergy & Immunology; ATTEND Surgery
PROC: HZ2ZZZZ Detoxification Services for Substance Abuse Treatment (ICD-10-PCS; principal; 2022-08-14)
DX: F11.23 Opioid dependence with withdrawal (principal); F12.20 Cannabis dependence, uncomplicated; F17.210 Nicotine dependence, cigarettes, uncomplicated; F31.9 Bipolar disorder, unspecified; F41.9 Anxiety disorder, unspecified; F90.9 Attention-deficit hyperactivity disorder, unspecified type; R41.82 Altered mental status, unspecified
CPT/HCPCS: 36415; 80053; 81025; 85027; 86780; 87811; C9803-CS; Q0162; U0003; U0005

== ENCOUNTER 2022-08-19 10:40 | Observation (INO) | payer BC ==
[2022-08-19 10:59] VITALS: RESP 20; BMI 23.8
[2022-08-19] MEDS ORDERED: FAMOTIDINE 20 MG/50 ML IVPB 20 MG/50 ML MG IVPB ONE ×2 (11:41→13:07)
[2022-08-19] MEDS ORDERED: SODIUM CHLORIDE 1,000 ML IV STA (11:41)
[2022-08-19 15:16] LABS: BASO % 0.1 % (0-2.0); HEMATOCRIT 36.7 % (32.4-45.2); HEMOGLOBIN 12.2 GM/dL (10.7-15.3); LYMPH % 29.6 % (8-40); MCH 27.7 pg (25.7-33.7); MCHC 33.1 g/dl (32.0-36.0); MEAN CELL VOLUME 83.5 fl (80-96); MEAN PLT VOLUME 7.4 fl (7.5-11.1); MONO % 5.5 % (3.8-10.2); NEUT % 64.8 % (42.8-82.8); PLATELET COUNT 407 10^3/uL (134-434); RDW 17.9 % (11.6-15.6); WHITE BLOOD COUNT 9.1 K/mm3 (4.0-10.0)
[2022-08-19 15:21] LABS: INR 1.11 (0.83-1.09); PROTHROMBIN TIME (PATIENT) 12.8 SEC (9.7-13.0)
[2022-08-19 15:23] LABS: ACTIVATED PTT 28.1 SECONDS (25.2-36.5)
[2022-08-19 15:46] LABS: BLOOD UREA NITROGEN 20.3 mg/dL (7-18); CALCIUM 10.2 mg/dL (8.5-10.1)
[2022-08-19] MEDS ORDERED: LORazepam 1 MG TABLET PO ONE (15:46)
[2022-08-19 15:49] LABS: CREATININE 0.9 mg/dL (0.55-1.3)
[2022-08-19 15:50] LABS: BILIRUBIN,TOTAL 0.6 mg/dL (0.2-1)
[2022-08-19] MEDS ORDERED: LORazepam 1 MG TABLET ONE (15:51)
[2022-08-19 16:03] LABS: ALBUMIN 4.3 g/dl (3.4-5.0); TOT PROT 9.9 g/dl (6.4-8.2)
[2022-08-19] MEDS ORDERED: SODIUM CHLORIDE 0.9% 500 ML INFUS.BAG IV ONE (17:03)
[2022-08-19] MEDS ORDERED: ONDANSETRON 4 MG/2 ML VIAL IVPUSH ONE (17:44)
[2022-08-19] MEDS ORDERED: LORazepam 2 MG/ML SDV VIAL IVPUSH ONE (17:45)
[2022-08-19] MEDS ORDERED: ONDANSETRON 4 MG/2 ML VIAL ONE (17:48)
[2022-08-19] MEDS ORDERED: MIDAZOLAM HCL 2 MG/2 ML SINGLE DOSE VIAL IVPUSH ONE ×2 (19:14→19:56)
[2022-08-19] MEDS ORDERED: MIDAZOLAM HCL 2 MG/2 ML SINGLE DOSE VIAL ONE (19:19)
[2022-08-19] MEDS ORDERED: HALOPERIDOL LACTATE 5 MG/ML IM ONE ×2 (19:25→19:28)
[2022-08-19] MEDS ORDERED: MIDAZOLAM HCL 5 MG/1 ML Single Dose Vial ONE (20:05)
[2022-08-19] MEDS ORDERED: ENOXAPARIN NA (PORCINE) 40 MG/0.4 ML DISP.SYRIN SQ SCH (22:00)
[2022-08-19] MEDS ORDERED: ONDANSETRON 4 MG/2 ML VIAL IVPUSH PRN (22:02)
[2022-08-19] MEDS: LACTATED RINGERS SOLUTION 1,000 ML IV SCH (22:38)
[2022-08-19] MEDS ORDERED: NICOTINE 14 MG/24 HOURS TOPICAL PATCH TD ONE (22:40)
[2022-08-19] MEDS ORDERED: ENOXAPARIN NA (PORCINE) 40 MG/0.4 ML DISP.SYRIN SQ ONE (22:41)
[2022-08-19] MEDS: NICOTINE 14 MG/24 HOURS TOPICAL PATCH TD SCH (22:43)
[2022-08-20] MEDS ORDERED: HALOPERIDOL LACTATE 5 MG/ML IM ONE ×2 (00:48→06:23)
[2022-08-20] MEDS: LACTATED RINGERS SOLUTION 1,000 ML IV SCH (01:48)
[2022-08-20] MEDS ORDERED: LORazepam 2 MG/ML SDV VIAL IM ONE (06:39)
[2022-08-20 07:48] LABS: HEMATOCRIT 33.7 % (32.4-45.2); HEMOGLOBIN 11.1 GM/dL (10.7-15.3); MCH 27.4 pg (25.7-33.7); MCHC 32.9 g/dl (32.0-36.0); MEAN CELL VOLUME 83.4 fl (80-96); PLATELET COUNT 368 10^3/uL (134-434); RBC 4.04 M/mm3 (3.60-5.2); RDW 17.4 % (11.6-15.6); WHITE BLOOD COUNT 8.3 K/mm3 (4.0-10.0)
[2022-08-20 08:57] LABS: ALBUMIN 3.7 g/dl (3.4-5.0); BLOOD UREA NITROGEN 18.7 mg/dL (7-18); CALCIUM 9.2 mg/dL (8.5-10.1); MAGNESIUM 2.5 mg/dL (1.8-2.4)
[2022-08-20 09:00] LABS: CREATININE 0.8 mg/dL (0.55-1.3); PHOSPHOROUS 3.5 mg/dL (2.5-4.9)
[2022-08-20 09:02] LABS: BILIRUBIN,TOTAL 0.5 mg/dL (0.2-1); TOT PROT 8.4 g/dl (6.4-8.2)
[2022-08-20] MEDS ORDERED: PANTOPRAZOLE 40 MG TABLET PO SCH ×2 (10:00→22:00)
[2022-08-20] MEDS ORDERED: PANTOPRAZOLE SODIUM 40 MG VIAL IVPUSH ONE (10:00)
[2022-08-20 10:25] VITALS: BP 113/74; PULSE 74; TEMP 98.9
[2022-08-20] MEDS: NICOTINE 14 MG/24 HOURS TOPICAL PATCH TD SCH (11:49)
[2022-08-20] MEDS ORDERED: NICOTINE 14 MG/24 HOURS TOPICAL PATCH TD ONE (11:51)
[2022-08-20] MEDS ORDERED: PANTOPRAZOLE SODIUM 40 MG VIAL ONE (11:51)
== END 2022-08-20 14:15 | disposition home or self-care (01) ==
LOC: JER 10:40 → JERBED 15:04 → INTOOBSV 15:04
PROVIDERS: ADMIT Internal Medicine; ATTEND Nurse Practitioner Acute Care
PROC: 3E023GC Introduction of Other Therapeutic Substance into Muscle, Percutaneous Approach (ICD-10-PCS; principal; 2022-08-19)
PROC: 3E033GC Introduction of Other Therapeutic Substance into Peripheral Vein, Percutaneous Approach (ICD-10-PCS; 2022-08-19)
PROC: 3E0337Z Introduction of Electrolytic and Water Balance Substance into Peripheral Vein, Percutaneous Approach (ICD-10-PCS; 2022-08-19)
PROC: 3E033GC Introduction of Other Therapeutic Substance into Peripheral Vein, Percutaneous Approach (ICD-10-PCS; 2022-08-19)
DX: R41.82 Altered mental status, unspecified (principal); F31.9 Bipolar disorder, unspecified; F11.10 Opioid abuse, uncomplicated; F13.20 Sedative, hypnotic or anxiolytic dependence, uncomplicated; R11.2 Nausea with vomiting, unspecified; Z29.8 Encounter for other specified prophylactic measures; F17.210 Nicotine dependence, cigarettes, uncomplicated
CPT/HCPCS: 36415; 70450-TC; 74177-TC; 80053; 80061; 82962; 83690; 83735; 84100; 84484; 84703; 85025; 85027; 85610; 85730; 86704; 86708; 86803; 87340; 87517; 93005; 93010; 96361; 96365; 96372; 96375; 96376; 99285-25; C9803-CS; G0378; Q9967; U0003; U0005

== ENCOUNTER 2022-09-12 20:46 | Inpatient (IN) | payer BC ==
[2022-09-12 23:43] VITALS: BMI 22.6
[2022-09-13] MEDS ORDERED: IBUPROFEN 400 MG TABLET (FP) PO PRN (01:49)
[2022-09-13] MEDS ORDERED: cloNIDine HCL 0.1 MG TABLET PO PRN (01:49)
[2022-09-13] MEDS ORDERED: ACETAMINOPHEN 325 MG TABLET (FP) PO PRN ×2 (01:49)
[2022-09-13] MEDS ORDERED: NALOXONE HCL (KLOXXADO) 8 MG SPRAY NS PRN (01:49)
[2022-09-13] MEDS ORDERED: BISMUTH SUBSALICYLATE 524 MG/30 ML PO PRN (01:49)
[2022-09-13] MEDS ORDERED: LOPERAMIDE HCL 2 MG CAPSULE PO PRN (01:49)
[2022-09-13] MEDS ORDERED: MAGNESIUM HYDROX 2400MG/30ML ORAL SUSPENSION 30 ML CUP PO PRN (01:49)
[2022-09-13] MEDS ORDERED: MAG HYDROX/AL HYDROX/SIMETH 30 ML UNIT-DOSE CUP PO PRN (01:49)
[2022-09-13] MEDS ORDERED: DICYCLOMINE HCL 10 MG CAPSULE PO PRN (01:49)
[2022-09-13] MEDS ORDERED: POLYETHYLENE GLYCOL (HEALTHYLAX) 3350 17 GM PACKET PO PRN (01:49)
[2022-09-13] MEDS ORDERED: IBUPROFEN 600 MG TABLET (FP) PO PRN (01:49)
[2022-09-13] MEDS ORDERED: BENZOCAINE/MENTHOL (CHLORASEPTIC ) LOZENGE MM PRN (01:49)
[2022-09-13] MEDS ORDERED: methaDONE HCL 10 MG TABLET (FOR DETOX USE ONLY) ONE (02:30)
[2022-09-13] MEDS: methaDONE HCL 10 MG TABLET (FOR DETOX USE ONLY) PO ONE ×2 (02:45→04:12)
[2022-09-13] MEDS: NICOTINE 10 MG CARTRIDGE (INHALER) IH PRN ×3 (04:37→20:33)
[2022-09-13] MEDS: PRENATAL VITAMINS W/ FOLIC ACID TABLET (FP) PO SCH (10:13)
[2022-09-13] MEDS: LORazepam 0.5 MG TABLET PO PRN ×3 (10:13→20:32)
[2022-09-13] MEDS: METHOCARBAMOL 500 MG TABLET PO PRN (19:58)
[2022-09-13] MEDS: BENZTROPINE MESYLATE 0.5 MG TABLET (FP) PO SCH (21:14)
[2022-09-13] MEDS: MELATONIN 5 MG TABLETS PO SCH (21:14)
[2022-09-13] MEDS: THIAMINE HCL 100 MG TABLET (FP) PO SCH (21:17)
[2022-09-13] MEDS ORDERED: QUEtiapine FUMARATE 200 MG TABLET PO SCH ×2 (22:00)
[2022-09-13] MEDS ORDERED: QUEtiapine FUMARATE 100 MG TABLET (FP) PO SCH (22:00)
[2022-09-14] MEDS: METHOCARBAMOL 500 MG TABLET PO PRN ×3 (01:46→17:32)
[2022-09-14] MEDS: LORazepam 0.5 MG TABLET PO PRN (06:05)
[2022-09-14] MEDS: PRENATAL VITAMINS W/ FOLIC ACID TABLET (FP) PO SCH (10:05)
[2022-09-14] MEDS: QUEtiapine FUMARATE 200 MG TABLET PO SCH ×2 (10:05→22:09)
[2022-09-14] MEDS: BENZTROPINE MESYLATE 0.5 MG TABLET (FP) PO SCH ×2 (10:07→22:10)
[2022-09-14 10:24] LABS: HEMATOCRIT 33.8 % (32.4-45.2); HEMOGLOBIN 11.6 GM/dL (10.7-15.3); MCH 27.8 pg (25.7-33.7); MCHC 34.3 g/dl (32.0-36.0); MEAN CELL VOLUME 81.1 fl (80-96); MEAN PLT VOLUME 7.3 fl (7.5-11.1); PLATELET COUNT 520 10^3/uL (134-434); RBC 4.16 M/mm3 (3.60-5.2); RDW 16.2 % (11.6-15.6); WHITE BLOOD COUNT 4.5 K/mm3 (4.0-10.0)
[2022-09-14 10:32] LABS: CALCIUM 10.1 mg/dL (8.5-10.1)
[2022-09-14 10:33] LABS: ALBUMIN 3.3 g/dl (3.4-5.0)
[2022-09-14 10:36] LABS: CREATININE 0.8 mg/dL (0.55-1.3)
[2022-09-14 10:38] LABS: BILIRUBIN,TOTAL 0.2 mg/dL (0.2-1); TOT PROT 9.4 g/dl (6.4-8.2)
[2022-09-14] MEDS: NICOTINE 10 MG CARTRIDGE (INHALER) IH PRN (17:31)
[2022-09-14] MEDS: diazePAM 5 MG TABLET PO PRN (17:32)
[2022-09-14] MEDS: ONDANSETRON *ODT* 4 MG TABLET SL PRN (21:42)
[2022-09-14] MEDS: MELATONIN 5 MG TABLETS PO SCH (22:09)
[2022-09-14] MEDS: THIAMINE HCL 100 MG TABLET (FP) PO SCH (22:09)
[2022-09-15] MEDS: diazePAM 5 MG TABLET PO PRN (01:56)
[2022-09-15] MEDS: hydrOXYzine PAMOATE 25 MG CAPSULE (FP) PO PRN ×2 (02:36→23:16)
[2022-09-15] MEDS ORDERED: methaDONE HCL 10 MG TABLET (FOR DETOX USE ONLY) PO ONE (10:00)
[2022-09-15] MEDS: QUEtiapine FUMARATE 200 MG TABLET PO SCH ×2 (10:11→21:35)
[2022-09-15] MEDS: BENZTROPINE MESYLATE 0.5 MG TABLET (FP) PO SCH ×2 (10:11→21:35)
[2022-09-15] MEDS: METHOCARBAMOL 500 MG TABLET PO PRN ×3 (10:11→23:15)
[2022-09-15] MEDS: PRENATAL VITAMINS W/ FOLIC ACID TABLET (FP) PO SCH (10:12)
[2022-09-15] MEDS: LORazepam 0.5 MG TABLET PO PRN ×2 (17:26→22:02)
[2022-09-15] MEDS: MELATONIN 5 MG TABLETS PO SCH (21:35)
[2022-09-15] MEDS: THIAMINE HCL 100 MG TABLET (FP) PO SCH (21:35)
[2022-09-16] MEDS: ONDANSETRON *ODT* 4 MG TABLET SL PRN (09:27)
[2022-09-16] MEDS ORDERED: TRIMETHOBENZAMIDE HCL 200MG/2ML INJ IM ONE (11:01)
[2022-09-16] MEDS: QUEtiapine FUMARATE 200 MG TABLET PO SCH ×2 (13:36→23:37)
[2022-09-16] MEDS: METHOCARBAMOL 500 MG TABLET PO PRN (13:36)
[2022-09-16] MEDS: BENZTROPINE MESYLATE 0.5 MG TABLET (FP) PO SCH ×2 (13:37→23:36)
[2022-09-16] MEDS: PRENATAL VITAMINS W/ FOLIC ACID TABLET (FP) PO SCH (13:37)
[2022-09-16] MEDS: LORazepam 0.5 MG TABLET PO PRN (13:42)
[2022-09-16] MEDS: hydrOXYzine PAMOATE 25 MG CAPSULE (FP) PO PRN (15:08)
[2022-09-16 16:48] VITALS: RESP 18
[2022-09-16 20:51] VITALS: BP 192/113; PULSE 64; TEMP 97.7
[2022-09-16] MEDS: MELATONIN 5 MG TABLETS PO SCH (23:36)
[2022-09-16] MEDS: THIAMINE HCL 100 MG TABLET (FP) PO SCH (23:37)
[2022-09-17] MEDS ORDERED: methaDONE HCL 10 MG TABLET (FOR DETOX USE ONLY) PO ONE (10:00)
== END 2022-09-16 23:55 | disposition short-term general hospital (02) | DRG 773 ==
LOC: YASAS 20:46 → Y3N 09-13 03:04
PROVIDERS: ADMIT Allergy & Immunology; ATTEND Surgery
PROC: HZ2ZZZZ Detoxification Services for Substance Abuse Treatment (ICD-10-PCS; principal; 2022-09-13)
DX: F11.23 Opioid dependence with withdrawal (principal); F17.210 Nicotine dependence, cigarettes, uncomplicated; F31.9 Bipolar disorder, unspecified; F41.0 Panic disorder [episodic paroxysmal anxiety]; F90.9 Attention-deficit hyperactivity disorder, unspecified type; F41.9 Anxiety disorder, unspecified; R07.9 Chest pain, unspecified; R11.2 Nausea with vomiting, unspecified; R10.9 Unspecified abdominal pain
CPT/HCPCS: 36415; 80053; 81025; 85027; 86780; 93005; 93010; C9803-CS; Q0162; U0003; U0005

== ENCOUNTER 2022-09-16 17:38 | Observation (INO) | payer BC ==
[2022-09-16] MEDS ORDERED: ONDANSETRON 4 MG/2 ML VIAL IVPUSH ONE (18:48)
[2022-09-16] MEDS ORDERED: SODIUM CHLORIDE 0.9% 500 ML INFUS.BAG IV ONE (20:03)
[2022-09-16] MEDS ORDERED: ACETAMINOPHEN 1000 MG/100 ML BAG IVPB ONE (20:04)
[2022-09-16] MEDS ORDERED: KETOROLAC TROMETHAMINE 30 MG/1 ML VIAL IVPUSH ONE (20:04)
[2022-09-16] MEDS ORDERED: ACETAMINOPHEN INJECTION 100 ML IVPB ONE (20:22)
[2022-09-16] MEDS ORDERED: ONDANSETRON 4 MG/2 ML VIAL ONE (20:22)
[2022-09-16 20:49] LABS: BASO % 0.7 % (0-2.0); HEMATOCRIT 38.3 % (32.4-45.2); HEMOGLOBIN 12.3 GM/dL (10.7-15.3); LYMPH % 14.3 % (8-40); MCH 26.4 pg (25.7-33.7); MCHC 32.3 g/dl (32.0-36.0); MEAN PLT VOLUME 7.6 fl (7.5-11.1); MONO % 3.9 % (3.8-10.2); NEUT % 81.1 % (42.8-82.8); PLATELET COUNT 529 10^3/uL (134-434); RBC 4.67 M/mm3 (3.60-5.2); RDW 16.5 % (11.6-15.6); WHITE BLOOD COUNT 12.7 K/mm3 (4.0-10.0)
[2022-09-16 20:54] LABS: CHLORIDE 106 mmol/L (98-107); SODIUM 142 mmol/L (136-145)
[2022-09-16 20:56] LABS: CALCIUM 10.4 mg/dL (8.5-10.1)
[2022-09-16 20:57] LABS: ALBUMIN 3.9 g/dl (3.4-5.0); ANION GAP 9 MMOL/L (8-16); BLOOD UREA NITROGEN 23.2 mg/dL (7-18); CO2 27 mmol/L (21-32); GLUCOSE,RANDOM 135 mg/dL (74-106)
[2022-09-16] MEDS ORDERED: KETOROLAC TROMETHAMINE 30 MG/1 ML VIAL ONE (20:58)
[2022-09-16 21:00] LABS: CREATININE 1.3 mg/dL (0.55-1.3); SGOT/AST 25 U/L (15-37); SGPT/ALT 32 U/L (13-61)
[2022-09-16 21:02] LABS: BILIRUBIN,TOTAL 0.2 mg/dL (0.2-1); TOT PROT 10.3 g/dl (6.4-8.2)
[2022-09-16 21:03] LABS: ALK PHOS 142 U/L (45-117)
[2022-09-16 21:22] LABS: LIPASE 281 U/L (73-393); MAGNESIUM 2.4 mg/dL (1.8-2.4)
[2022-09-16 21:26] LABS: PHOSPHOROUS 4.8 mg/dL (2.5-4.9)
[2022-09-16] MEDS ORDERED: methaDONE HCL 10 MG TABLET (FOR DETOX USE ONLY) PO ONE (21:30)
[2022-09-16] MEDS ORDERED: methaDONE HCL 10 MG TABLET ONE (21:33)
[2022-09-16] MEDS ORDERED: METOCLOPRAMIDE HCL INJECTION 10 MG/2 ML VIAL ONE (21:37)
[2022-09-16] MEDS ORDERED: METOCLOPRAMIDE HCL INJECTION 10 MG/2 ML VIAL IVPUSH ONE (21:39)
[2022-09-16] MEDS ORDERED: MAGNESIUM SULF 50% (8.12 MEQ/2 ML-1 GM VIAL) IVPB ONE (21:49)
[2022-09-16] MEDS ORDERED: MAGNESIUM SULFATE IN WATER 2 GM/50 ML IVPB IVPB ONE (21:54)
[2022-09-17] MEDS ORDERED: BISMUTH SUBSALICYLATE 524 MG/30 ML PO PRN (00:50)
[2022-09-17] MEDS ORDERED: TRIMETHOBENZAMIDE HCL 200MG/2ML INJ IM ONE ×3 (02:54→22:56)
[2022-09-17] MEDS: TRIMETHOBENZAMIDE HCL 200MG/2ML INJ IM PRN ×3 (03:17→23:27)
[2022-09-17] MEDS: LACTATED RINGERS SOLUTION 1,000 ML/1,000 ML INFUS.BAG IV SCH (03:17)
[2022-09-17] MEDS ORDERED: LORazepam 1 MG TABLET PO ONE (04:15)
[2022-09-17] MEDS ORDERED: LORazepam 2 MG TABLET PO ONE (04:15)
[2022-09-17] MEDS ORDERED: LORazepam 1 MG TABLET ONE (04:30)
[2022-09-17] MEDS ORDERED: ENOXAPARIN NA (PORCINE) 40 MG/0.4 ML DISP.SYRIN SQ ONE (08:11)
[2022-09-17 08:23] LABS: BASO % 0.1 % (0-2.0); HEMATOCRIT 31.4 % (32.4-45.2); HEMOGLOBIN 10.3 GM/dL (10.7-15.3); MCH 26.8 pg (25.7-33.7); MCHC 32.7 g/dl (32.0-36.0); MEAN CELL VOLUME 82.1 fl (80-96); MEAN PLT VOLUME 7.3 fl (7.5-11.1); MONO % 10.9 % (3.8-10.2); PLATELET COUNT 420 10^3/uL (134-434); RBC 3.83 M/mm3 (3.60-5.2); RDW 16.5 % (11.6-15.6); WHITE BLOOD COUNT 9.8 K/mm3 (4.0-10.0)
[2022-09-17 08:37] LABS: MAGNESIUM 2.7 mg/dL (1.8-2.4)
[2022-09-17 08:38] LABS: BLOOD UREA NITROGEN 19.2 mg/dL (7-18)
[2022-09-17 08:40] LABS: CREATININE 0.9 mg/dL (0.55-1.3); PHOSPHOROUS 4.2 mg/dL (2.5-4.9)
[2022-09-17 08:42] LABS: BILIRUBIN,TOTAL 0.3 mg/dL (0.2-1)
[2022-09-17 09:02] LABS: CALCIUM 8.8 mg/dL (8.5-10.1); TOT PROT 7.8 g/dl (6.4-8.2)
[2022-09-17] MEDS: ENOXAPARIN NA (PORCINE) 40 MG/0.4 ML DISP.SYRIN SQ SCH (10:30)
[2022-09-17] MEDS ORDERED: ALPRAZolam 1 MG TABLET PO PRN (14:37)
[2022-09-17] MEDS ORDERED: ALPRAZolam 1 MG TABLET ONE (14:52)
[2022-09-17] MEDS ORDERED: QUEtiapine FUMARATE 100 MG TABLET (FP) ONE (14:52)
[2022-09-17] MEDS: QUEtiapine FUMARATE 200 MG TABLET PO SCH (15:09)
[2022-09-17] MEDS: ALPRAZolam 1 MG TABLET PO PRN (15:09)
[2022-09-17 15:38] LABS: HCG,QUALITATIVE URINE Negative
[2022-09-17 15:50] LABS: EPI CELLS >36 /uL (0-25.1); HYALINE CASTS 4 /uL (0-3.1); PH,URINE 5.5 (5.0-8.0); PHENCYCLIDINE,URINE NEGATIVE (NEGATIVE); URINE AMPHETAMINES NEGATIVE (NEGATIVE); URINE APPEARANCE CLEAR; URINE BACTERIA 668 /uL (0-1359); URINE BILIRUBIN NEGATIVE (NEGATIVE); URINE COLOR YELLOW; URINE GLUCOSE (UA) NEGATIVE (NEGATIVE); URINE KETONE TRACE (NEGATIVE); URINE LEUK ESTERASE NEGATIVE (NEGATIVE); URINE NITRITE NEGATIVE (NEGATIVE); URINE PROTEIN 1+ (NEGATIVE); URINE RBC 14 /uL (0-23.9); URINE UROBILINOGEN 0.2 mg/dL (0.2-1.0); URINE WBC 21 /uL (0-25.8)
[2022-09-17 15:51] LABS: COCAINE, UR NEGATIVE (NEGATIVE); URINE BARBITURATES NEGATIVE (NEGATIVE)
[2022-09-17 15:52] LABS: METHADONE, UR POSITIVE (NEGATIVE); OPIATES, URI POSITIVE (NEGATIVE); URINE BENZODIAZEPINES POSITIVE (NEGATIVE)
[2022-09-17 16:11] LABS: GAMMA GLUTAMYL TRANSPEPTIDASE 42 U/L (5-85)
[2022-09-17] MEDS: BENZTROPINE MESYLATE 0.5 MG TABLET (FP) PO SCH (16:48)
[2022-09-17] MEDS ORDERED: guaiFENesin 200 MG/10 ML 10 ML UNIT-DOSE CUPS PO ONE (22:52)
[2022-09-18] MEDS ORDERED: guaiFENesin 200 MG/10 ML 10 ML UNIT-DOSE CUPS ONE (00:49)
[2022-09-18] MEDS: BENZTROPINE MESYLATE 0.5 MG TABLET (FP) PO SCH ×3 (00:51→23:00)
[2022-09-18] MEDS: QUEtiapine FUMARATE 200 MG TABLET PO SCH ×3 (00:51→23:00)
[2022-09-18] MEDS: LACTATED RINGERS SOLUTION 1,000 ML/1,000 ML INFUS.BAG IV SCH (05:23)
[2022-09-18] MEDS ORDERED: ALPRAZolam 1 MG TABLET ONE ×3 (05:24→23:31)
[2022-09-18] MEDS: ALPRAZolam 1 MG TABLET PO PRN ×3 (05:31→23:34)
[2022-09-18] MEDS ORDERED: TRIMETHOBENZAMIDE HCL 200MG/2ML INJ IM ONE ×2 (08:36→22:51)
[2022-09-18] MEDS: TRIMETHOBENZAMIDE HCL 200MG/2ML INJ IM PRN ×2 (08:38→22:59)
[2022-09-18] MEDS ORDERED: ENOXAPARIN NA (PORCINE) 40 MG/0.4 ML DISP.SYRIN SQ ONE (09:46)
[2022-09-18] MEDS: ENOXAPARIN NA (PORCINE) 40 MG/0.4 ML DISP.SYRIN SQ SCH (09:47)
[2022-09-18 10:23] VITALS: TEMP 98.1; BMI 21.9
[2022-09-18] MEDS ORDERED: FAMOTIDINE 20 MG/50 ML IVPB 20 MG/50 ML MG IVPB ONE ×2 (10:44→11:26)
[2022-09-18] MEDS ORDERED: QUEtiapine FUMARATE 100 MG TABLET (FP) ONE (22:51)
[2022-09-18] MEDS ORDERED: PANTOPRAZOLE SODIUM 40 MG VIAL ONE (22:51)
[2022-09-18] MEDS: PANTOPRAZOLE SODIUM 40 MG VIAL IVPUSH SCH (23:00)
[2022-09-19] MEDS ORDERED: TRIMETHOBENZAMIDE HCL 200MG/2ML INJ IM ONE (07:47)
[2022-09-19] MEDS ORDERED: ALPRAZolam 1 MG TABLET ONE (07:47)
[2022-09-19] MEDS: TRIMETHOBENZAMIDE HCL 200MG/2ML INJ IM PRN (07:58)
[2022-09-19] MEDS: ALPRAZolam 1 MG TABLET PO PRN (07:59)
[2022-09-19 08:00] VITALS: BP 123/88; PULSE 56; RESP 18
[2022-09-19] MEDS ORDERED: PANTOPRAZOLE SODIUM 40 MG VIAL ONE (08:37)
[2022-09-19] MEDS ORDERED: QUEtiapine FUMARATE 100 MG TABLET (FP) ONE (08:37)
[2022-09-19] MEDS ORDERED: ENOXAPARIN NA (PORCINE) 40 MG/0.4 ML DISP.SYRIN SQ ONE (08:37)
[2022-09-19] MEDS: BENZTROPINE MESYLATE 0.5 MG TABLET (FP) PO SCH (09:14)
[2022-09-19] MEDS: QUEtiapine FUMARATE 200 MG TABLET PO SCH (09:14)
[2022-09-19] MEDS: ENOXAPARIN NA (PORCINE) 40 MG/0.4 ML DISP.SYRIN SQ SCH (09:14)
[2022-09-19] MEDS: PANTOPRAZOLE SODIUM 40 MG VIAL IVPUSH SCH (09:14)
[2022-09-19] MEDS ORDERED: METOCLOPRAMIDE HCL INJECTION 10 MG/2 ML VIAL IVPUSH PRN (10:48)
[2022-09-19] MEDS ORDERED: LACTATED RINGERS SOLUTION 1,000 ML/1,000 ML INFUS.BAG IV SCH (11:00)
[2022-09-19] MEDS ORDERED: METOCLOPRAMIDE HCL INJECTION 10 MG/2 ML VIAL ONE (13:31)
== END 2022-09-19 14:35 | disposition home or self-care (01) ==
LOC: JER 17:38 → UNDOADMOB 22:31 → JERBED 22:31 → INTOOBSV 22:31 → JERBED 09-17 14:48
PROVIDERS: ADMIT Internal Medicine; ATTEND Internal Medicine
PROC: 3E033NZ Introduction of Analgesics, Hypnotics, Sedatives into Peripheral Vein, Percutaneous Approach (ICD-10-PCS; principal; 2022-09-17)
PROC: 3E023GC Introduction of Other Therapeutic Substance into Muscle, Percutaneous Approach (ICD-10-PCS; 2022-09-17)
PROC: 3E033GC Introduction of Other Therapeutic Substance into Peripheral Vein, Percutaneous Approach (ICD-10-PCS; 2022-09-17)
PROC: 3E0333Z Introduction of Anti-inflammatory into Peripheral Vein, Percutaneous Approach (ICD-10-PCS; 2022-09-17)
PROC: 3E023GC Introduction of Other Therapeutic Substance into Muscle, Percutaneous Approach (ICD-10-PCS; 2022-09-17)
DX: F11.90 Opioid use, unspecified, uncomplicated (principal); B97.4 Respiratory syncytial virus as the cause of diseases classified elsewhere; F12.10 Cannabis abuse, uncomplicated; D64.9 Anemia, unspecified; F41.0 Panic disorder [episodic paroxysmal anxiety]; F14.10 Cocaine abuse, uncomplicated
CPT/HCPCS: 0241U-QW; 36415; 71045-TC-FY; 74018-TC-FY; 80053; 80307; 81003; 82397; 82977; 83690; 83735; 84100; 84484; 84702; 84703; 85025; 87086; 93005; 93010; 99285-25; G0378